=== PATIENT | female | born 1950 | race Caucasian/White ===

== ENCOUNTER → 2019-09-02 09:46 | Outpatient (CLI) | payer OTHER, SELFPAY ==
--- NOTE | 2019-09-02 | IMM_PTH ---
PATIENT: SUMIT BOLTON LOC: [facility] U#:[id number] AGE/SX: 75/F ROOM: RE09/02/[address]: Dr. Yuri Harman MD : 1950 BED: DIS: SPEC #: [id number] RECD: 09/06/19 10:18 STATUS: VICENTE RENikolai #: [id number] SINA: 09/02/19 00:[address]: Yuri Harman DEPT: IMMUNOHISTOCHEMISTRY RECD BY: Jackie Kessler ENTERED: 09/06/19 10:20 SP TYPE: IMMUNO OTHR DR: Dr. Yuri Huerta MD Tissues: Right breast, NOS Procedures: CALPONIN-1 (add) CK8 (add) E-CAD (add) HER2 MONICA (add) CA (add) P40 (add) ER (initial) PHYSICIAN & INSTITUTION [place] [id number] SPECIMEN INFORMATION: Tissue Source: Right breast Clinical Info: Abnormal right breast ultrasound Specimen Number: [id number] CPT code: 78343, 07938 x3, 39479 x3 METHODOLOGY: Deparaffinized sections of prefer/formalin-fixed tissue or PAP/DQ stained slides are incubated with monoclonal/polyclonal antibodies/oligonucleotide probes. Localization is made via biotin free immunoperoxidase method. Appropriate controls are performed and reacted as expected. Results on target cell population are indicated in the following table: RESULTS: ANTIBODY / CLONE RESULT E-Cad (ECH-6) positive CK8 ([id number]) positive Calponin-1 (QD663H) negative P40 (BC28) negative MORPHOMETRIC ANALYSIS ER (clone 6F11) >95%, strong intensity CA (clone 16/1E2) >95%, strong intensity Her-2Neu (clone CB11) negative (0) The prognostic test for HER2 is performed on formalin-fixed paraffin embedded tissue. A 3+ (positive) staining pattern is defined as intense, homogeneous, complete, circumferential membranous staining in >10% of contiguous tumor cells. A similar weak (2+) staining pattern is interpreted as equivocal. SOLEDAD follow-up testing is recommended for all equivocal cases. Positivity/negativity for ER/CA is reported if > or < 1% of the tumor cells are immuno- reactive, respectively. The ASCO/CAP criteria is used for scoring. Reference: Journal of Clinical Oncology, 2013; 31:7096-7543 & 2010; 16:6841-0237. Duration of fixation: 58 Hrs; Sample Adequate: Yes. These assays have not been validated on decalcified tissues. Results should be interpreted with caution given the likelihood of false negativity on decalcified specimens. These tests were developed and their performance characteristics determined by [facility]. They may not have been cleared or approved by the U.S. Food and Drug Administration. The FDA has determined that such clearance or approval is not necessary. The above immunohistochemical/dualISH markers are ordered and reviewed by the Pathologist. 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 SJ:minnie 09/07/19 Case has been reviewed in consultation with Dr. Sandhu who concurs with the above diagnosis. IDC:AM
[2019-09-02 09:06] VITALS: BMI 33.2
--- NOTE | 2019-09-02 09:10 | BRBX_PTH ---
PATIENT: SUMIT BOLTON LOC: [facility] U#:[id number] AGE/SX: 75/F ROOM: RE09/02/[address]: Dr. Yuri Harman MD : 1950 BED: DIS: SPEC #: [id number] RECD: 09/02/19 16:28 STATUS: VICENTE YESSENIA #: [id number] SINA: 09/02/19 09:[address]: Yuri Harman DEPT: SURGICAL PATHOLOGY RECD BY: Jonatan Beck ENTERED: 09/03/19 11:10 SP TYPE: BREAST BX OTHR DR: Dr. 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 See comment. DAE:minnie 09/06/19 COMMENT Immunohistochemistry ([id number]) supports the above diagnosis. ER/NJ/Lan8fum studies are being performed on sections of tumor and the results from this study will be reported separately ([id number]). Case has been reviewed in consultation with Dr. Sandhu who concurs with the above diagnosis. IDC:AM MICROSCOPIC DESCRIPTION Slides are reviewed. GROSS DESCRIPTION Received in fixative is one container labeled with the patient's name and designated right breast biopsy. The specimen consists of multiple fragments of olmedo-yellow fibroadipose tissue that in aggregate measure 1 x 0.3 x 0.1 cm. The entire specimen is submitted in one cassette. / DAE:minnie 09/03/19 TC:0 CPT: 68184
--- NOTE | 2019-09-02 09:51 | BI_ITS ---
MAMMOGRAPHY - UNILATERAL DIAGNOSTIC: RIGHT BREAST REASON FOR EXAM: Female, 69 years old. Assessment of the clip placement device following ultrasound-guided biopsy. PERTINENT HISTORY: Nodular density in the upper deep lateral aspect of the right breast. TECHNIQUE: Digital unilateral breast dunia (3D mammographic acquisition) in the CC and MLO projections. 2-D mediolateral oblique (MLO) and craniocaudad (CC) views of both breasts were obtained. CAD: Full Field Digital Mammography with Computer Added Detection was performed. COMPARISON: None. FINDINGS: A tissue clip marker is seen within a 7.6 mm x 5.1 mm nodular density in the deep axillary aspect of the breast. BI/DIAG MAMM W/CAD, UNILAT IMPRESSION: Tissue clip marker is seen within a nodule in the deep axillary portion of the right breast. ASSESSMENT CATEGORY: BIRADS Category 2: Benign. A letter regarding these results will be sent to the patient by the facility within 30 days. Approximately 10% of breast cancers are not detected by mammography. A normal mammogram should not delay biopsy of a clinically suspicious abnormality. Electronically Signed: Stoney Castañeda, at 11:01 EST , Service support ,
== END ==
PROVIDERS: Family Provider Family Medicine; PCP Family Medicine; Referring Provider Surgery; Visit Provider Surgery
DX: R92.8 Other abnormal and inconclusive findings on diagnostic imaging of breast (principal)
CPT/HCPCS: 77065; 88305; 88341; 88342

== ENCOUNTER → 2019-09-10 08:57 | Outpatient (CLI) | payer OTHER, SELFPAY ==
[2019-09-07 15:22] VITALS: BMI 33.2
[2019-09-08 16:42] VITALS: BMI 33.2
--- NOTE | 2019-09-10 08:59 | BI_ITS ---
MAMMOGRAPHY - UNILATERAL DIAGNOSTIC: LEFT BREAST REASON FOR EXAM: Female, 69 years old. History of right breast papilloma. PERTINENT HISTORY: Grandmother with breast cancer. Prior right stereotactic breast biopsy. TECHNIQUE: Digital unilateral breast dunia (3D mammographic acquisition) in the CC and MLO projections. 2-D mediolateral oblique (MLO) and craniocaudad (CC) views of both breasts were obtained. CAD: Full Field Digital Mammography with Computer Added Detection was performed. COMPARISON: Comparison is made with prior outside examination dated February 05, 2019. FINDINGS: Breast Composition: There are scattered areas of fibroglandular density. There are no dominant masses or suspicious calcifications. No other significant abnormalities are identified. There has been no significant change since the prior study. BI/DIAG MAMM W/CAD, UNILAT IMPRESSION: Stable unilateral diagnostic mammogram. One year follow-up mammogram recommended. (A) ASSESSMENT CATEGORY: BIRADS Category 2: Benign. A letter regarding these results will be sent to the patient by the facility within 30 days. Approximately 10% of breast cancers are not detected by mammography. A normal mammogram should not delay biopsy of a clinically suspicious abnormality. Electronically Signed: Stoney Castañeda, at 12:34 EST , Service support ,
== END ==
PROVIDERS: Family Provider Family Medicine; PCP Family Medicine; Referring Provider Surgery; Visit Provider Surgery
DX: R92.8 Other abnormal and inconclusive findings on diagnostic imaging of breast (principal)
CPT/HCPCS: 77061; 77065; G0279

== ENCOUNTER → 2019-09-13 15:36 | Outpatient (CLI) | payer OTHER, SELFPAY ==
[2019-09-13 14:26] VITALS: BMI 35.5
--- NOTE | 2019-09-13 15:40 | RAD_ITS ---
STUDY: X-RAY CHEST REASON FOR EXAM: Female, 69 years old. Preop breast cancer TECHNIQUE: Frontal and lateral views of the chest. COMPARISON: None. FINDINGS: The lungs are clear and expanded. There is no demonstrated pleural abnormality. Normal size heart. Normal mediastinum and philip. Normal visualized pulmonary arteries. Normal visualized aortic arch and descending thoracic aorta. Normal visualized thoracic spine. Normal visualized ribs, clavicles, and shoulders. There is no demonstrated abnormality of the visualized soft tissue structures of the upper abdomen. RAD/Chest PA and Lateral IMPRESSION: Normal x-ray examination of the chest. Electronically Signed: Jayro Ferro MD at 0:01 EST , Service support ,
== END ==
PROVIDERS: Family Provider Family Medicine; PCP Family Medicine; Referring Provider Internal Medicine Medical Oncology; Visit Provider Internal Medicine Medical Oncology
DX: C50.411 Malignant neoplasm of upper-outer quadrant of right female breast (principal)
CPT/HCPCS: 71046

== ENCOUNTER 2019-09-16 11:19 | Day surgery (SDC) | payer OTHER, SELFPAY ==
--- NOTE | 2019-09-08 04:42 | HP_ITS ---
Intake Vital Signs 09/07/19 Body Mass Index (BMI) 33.2 Intake Visit Reasons: discuss breast path--@1445 Allergies levofloxacin [From Levaquin] Allergy (Unknown, Verified 09/02/19 09:05) Unknown Sulfa (Sulfonamide Antibiotics) Allergy (Unknown, Verified 09/02/19 09:05) Unknown [facility] Medical History Acid reflux (Acute) Heart murmur (Acute) Thyroid disease (Acute) Abnormal mammogram of right breast (Acute) Abnormal ultrasound of breast (Acute) Fatigue (Acute) Surgical History Hx of right breast biopsy (Acute) Hx of ovarian cystectomy (Acute) Hx of tubal ligation (Acute) Hx of tonsillectomy (Acute) Family History Mother Arthritis Heart disease Hypertension High cholesterol Skin cancer Son Diabetes Social History (Updated 09/08/19 @ 16:42 by Yuri Harman MD) Smoking Status: Never smoker second hand exposure: No alcohol intake: current alcohol intake frequency: holidays/special occasions only substance use type: does not use caffeine: Yes what type of physical activity do you participate in: none frequency: does not exercise seatbelt use: always HPI HPI HPI: SUMIT BOLTON is a 69 F who presents to the office today for HPI HPI Surgical H&P: Yes HPI: SUMIT BOLTON is a 69 F who presents to the office today for who returns today to discuss pathology from a ultrasound-guided needle core biopsy high in the upper outer quadrant right breast that I performed for her on September 02, 2019. This was because of a slowly enlarging density in that location. She had had a previous stereotactic biopsy seemingly in a similar area although a marking clip was not placed at the time of that sampling. 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 Progesterone receptor greater than 95%. HER-2/prashant was negative. She did obtain postprocedural mammogram demonstrating the marking clip that I placed to be in the density on mammogram according the 2 areas. It is of note that she has not had a left unilateral mammogram since January 2019 since follow-up and evaluation of this right sided lesion was initiated. The patient was referred to me because a six- month follow-up mammogram on the right demonstrated a change. 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 Is patient in pain?: No (Right breast tenderness) Allergies levofloxacin [From Levaquin] Allergy (Unknown, Verified 08/24/19 13:56) Unknown Sulfa (Sulfonamide Antibiotics) Allergy (Unknown, Verified 08/24/19 13:55) Unknown Medications calcium carbonate 500 mg calcium (1,250 mg) tablet 500 mg PO DAILY 08/24/19 [History Confirmed 08/24/19] fluticasone propionate 50 mcg/actuation nasal spray,suspension 1 spray INTRANASAL DAILY 08/24/19 [History Confirmed 08/24/19] levothyroxine 125 mcg tablet 62.5 mcg PO DAILY #45 tab 08/24/19 [History Confirmed 08/24/19] PFSH Medical History (Updated 08/24/19 @ 13:52 by Marquita Baxter) Acid reflux (Acute) Heart murmur (Acute) Thyroid disease (Acute) Abnormal mammogram of right breast (Acute) Abnormal ultrasound of breast (Acute) Fatigue (Acute) Surgical History (Updated 08/24/19 @ 13:52 by Marquita Baxter) Hx of right breast biopsy (Acute) Hx of ovarian cystectomy (Acute) Hx of tubal ligation (Acute) Hx of tonsillectomy (Acute) Family History (Updated 08/24/19 @ 13:53 by Marquita Baxter) Mother Arthritis Heart disease Hypertension High cholesterol Skin cancer Son Diabetes Social History (Updated 08/24/19 @ 15:44 by Yuri Harman MD) Smoking Status: Never smoker second hand exposure: No alcohol intake: current alcohol intake frequency: holidays/special occasions only substance use type: does not use caffeine: Yes what type of physical activity do you participate in: none frequency: does not exercise seatbelt use: always HPI HPI HPI: SUMIT BOLTON, is a 69 F who presents to the office today for surgical consultation regarding abnormal right breast ultrasound. 69-year-old female. G3, . Menarche at his age 14. First child was born when she was 25. She did breast-feed. She has had a very remote needle biopsy of the breast not sure which breast. That was benign. About 2 years ago she had a stereotactic needle core right breast biopsy. She does not recall whether that was for a density or calcifications but she states that the pathology simply showed benign calcifications. She is not on any estrogen replacement therapy. A maternal grandmother had breast cancer but that is when she was in her 80s. On February 05, 2019 at [facility] she had bilateral digital screening mammography. The left breast was unremarkable. The right breast showed an asymmetry only on the oblique view superior posterior breast posterior depth 6 x 6 mm. Mild interval growth was suggested. So on February 09, 2019 right breast ultrasound was done. Solid appearing mass like benign morphology 10 o'clock position upper outer right breast 4 x 5 x 4 mm. Follow-up ultrasound recommended. On August 13, 2019 at [facility] follow-up right breast ultrasound was obtained. A solid suspicious appearing lesion heterogenous hypoechoic echotexture mid breath depth 10 o'clock position right breast 7 x 9 x 7 mm previously having measured 4 x 5 x 4 mm. BI-RADS Category 4. On today's visit we do not have pathology from her stereotactic breast biopsy of 2 years ago and we do not have a disc of images of her current set of ultrasounds. The patient however states that her previous stereotactic biopsy was in the upper outer quadrant of the right breast. It is not clear whether we are discussing the same lesion HPI HPI HPI: SUMIT BOLTON, is a 69 F who presents to the office today for ROS General General: Yes fatigue; no weight change, appetite, colon cancer, breast cancer or weakness HEENT HEENT: No difficulty swallowing, eye injury, eye surgery, swollen glands or hoarseness Endo Endocrine: Yes thyroid disease; no diabetes mellitus, thyroid cancer, Hair loss, heat intolerance or cold intolerance Skin Skin: No rash or changing moles Breast Breast: Yes right breast lump, abnormal mammogram and abnormal US; no left breast lump, nipple discharge, breast pain or breast enlargement Musc Musculoskeletal: No back problems, arthritis, rheumatoid arthritis, gout or joint pain Cardio Cardiovascular: Yes murmur; no pacemaker, heart disease, atrial fibrillation, high blood pressure, heart attack, heart stent, palpitations, shortness of breat with exertion or chest pain Psych Psychiatric: No depression, anxiety or hearing voices Resp Respiratory: No shortness of breath, No sleep apnea, No cough, No COPD, No asthma, No emphysema, No wheezing Gastro Gastrointestinal: No abdominal pain, No nausea or vomiting, No diarrhea, No constipation, No blood in stool, Yes acid reflux, No hemorrhoids, No ulcers, No gallbladder problem, No black,tarry stools Orion Hematologic: No blood thinners, No blood disorders, No bleeding, No anemia, No blood clots Neuro Neurologic: No system reviewed and no additional complaints, except as docu, No as per HPI, No abnormal walking, No abnormal hearing, No abnormal movements, No abnormal speech, No behavioral changes, No burning sensations, No confusion, No seizure-like activity, No unsteadiness, No dizziness, No localized weakness, No frequent falls, No headache(s), No lack of coordination, No loss of vision, No memory loss, No numbness, No other visual disturbances, No radiating pain, No restless legs, No sensory deficit, No fainting, No tingling, No tremor(s), No weakness, No other Exam Chest Breast Palpation: No nipple discharge Other: Right breast: No focal mass. No nipple discharge. No axillary or clavicular adenopathy Ultrasound of the right breast demonstrates a 8 mm diameter lesion 10 o'clock position +5 cm. It appears to correlate what has been descriptively identified and it appears on my exam to have a marking clip in position. Left breast: Mild diffuse fibrous change. No focal concerning mass. No nipple discharge. No distortion. The patient has mild tenderness in the lateral left breast. No axillary or clavicular adenopathy Cardio Heart Sounds: murmur Assessment & Plan Problems 1. Abnormal ultrasound of breast R92.8 Plan 69-year-old female who has a recent ultrasound performed at [facility] suggesting enlargement of a density right breast 10 o'clock position. The patient 2 years ago had a stereotactic biopsy done she thinks in a similar location. There are no palpable lesions today. On my brief inspection with ultrasound I believe that identify a 8 mm diameter lesion right breast 10 o'clock position +5 cm that has a marking clip in place and would appear to correlate with the description offered. I recommended the patient that we obtain pathology results from her stereotactic needle core biopsy as well as hopefully the operative note. I recommend that we obtain a disc of images from her most recent ultrasound performed at [facility] as well as hopefully images of her January 2019 mammograms. Once having received this information we will then recommend to the patient whether she needs to have an additional ultrasound-guided biopsy upper outer quadrant right breast lesion or whether there is evidence that this area has already been biopsied. I appreciate the opportunity of assisting with her surgical care CC: Dr. Yuri ORTEGA General General: Yes fatigue; no weight change, appetite, colon cancer, breast cancer or weakness HEENT HEENT: No difficulty swallowing, eye injury, eye surgery, swollen glands or hoarseness Endo Endocrine: Yes thyroid disease; no diabetes mellitus, thyroid cancer, Hair loss, heat intolerance or cold intolerance Skin Skin: No rash or changing moles Breast Breast: Yes right breast lump, abnormal mammogram and abnormal US; no left breast lump, nipple discharge, breast pain or breast enlargement Musc Musculoskeletal: No back problems, arthritis, rheumatoid arthritis, gout or joint pain Cardio Cardiovascular: Yes murmur; no pacemaker, heart disease, atrial fibrillation, high blood pressure, heart attack, heart stent, palpitations, shortness of breat with exertion or chest pain Psych Psychiatric: No depression, anxiety or hearing voices Resp Respiratory: No shortness of breath, No sleep apnea, No cough, No COPD, No asthma, No emphysema, No wheezing Gastro Gastrointestinal: No abdominal pain, No nausea or vomiting, No diarrhea, No constipation, No blood in stool, Yes acid reflux, No hemorrhoids, No ulcers, No gallbladder problem, No black,tarry stools Orion Hematologic: No blood thinners, No blood disorders, No bleeding, No anemia, No blood clots Neuro Neurologic: No weakness Exam Chest Breast Palpation: No nipple discharge Cardio Heart Sounds: murmur Assessment & Plan Problems 1. 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 Today was a 20- minute consultative appointment. The patient's accompanied her. I am proposing for her a ultrasound-guided wire localization upper outer quadrant right breast lumpectomy. I did take several core samples. Pathology appears to be consistent with a in situ lesion. We did discuss the potential technique risks benefits of a sentinel lymph node biopsy of the axilla. I did caution the patient that this is not a risk free surgical addition. She is aware that she likely will require post surgery radiation treatment. She has had an opportunity to ask and have questions answered. She states that she has already done online research and the current recommendations correlate with her findings. I do recommend that we obtain hematology oncology consultation preintervention. She concurs and I will make appropriate referral. Both the patient and her have had an opportunity to ask and have questions answered. We will schedule and proceed at her discretion for next week. CC: Dr. Yuri Harman M.D., F.A.C.S. 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 After discussion with him she has elected to proceed with a sentinel lymph node biopsy of right axillary nodes utilizing nuclear medicine and blue dye. She is aware of the technique, benefits, risks, alternatives. She has had an opportunity to ask and have questions answered. The sentinel lymph node biopsy will be added to her procedure. Yuri Harman M.D., F.A.C.S.
[2019-09-13 14:26] VITALS: BMI 35.5
--- NOTE | 2019-09-16 | BRBX_PTH ---
PATIENT: SUMIT BOLTON [place] [facility] [id number] AGE/SX: 69/F ROOM: RE09/16/[address]: Dr. Yuri Harman MD : 1950 BED: DIS: 09/16/2019 SPEC #: [id number] RECD: 09/16/19 16:19 STATUS: VICENTE YESSENIA #: [id number] SINA: 09/16/19 00:[address]: Yuri Harman DEPT: SURGICAL PATHOLOGY RECD BY: Jackie Kessler ENTERED: 09/17/19 07:30 SP TYPE: BREAST BX OTHR DR: Dr. 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 Right breast mass, B. Right sentinel lymph node FROZEN SECTION DIAGNOSIS A. Right breast, lumpectomy: Mass is located 0.8cm from closest superior margin. B. Right sentinel lymph node tissue: Three out of three lymph nodes, negative for metastatic carcinoma. SJ:minnie 09/16/19 MICROSCOPIC DIAGNOSIS A. Right breast mass, lumpectomy: Solid papillary ductal carcinoma in situ. See Cancer Check List below. B. Right sentinel lymph nodes, biopsy: 3 out of 3 lymph nodes negative for carcinoma. AM:rashid 09/22/19 COMMENT DUCTAL CARCINOMA IN SITU BREAST CANCER SUMMARY Procedure: Lumpectomy Specimen: Type: Partial breast Laterality: Right breast Size (Extent of DCIS): Estimated size (extent): 0.8 x 0.7 x 0.6 cm Number of blocks: 2 of 9 blocks Architectural pattern: Papillary Nuclear grade: 1-2 Necrosis: Not present Margin (s) Involved By In Situ Carcinoma: All margins are negative Distance from closest margin: 0.8 mm from superior margin Regional Lymph Nodes: Total number of lymph nodes examined: 3 Total number of sentinel lymph nodes examined: 3 Number of lymph nodes involved by carcinoma: 0 Extranodal extension: N/A No evidence of macrometastases, micrometastases or isolated tumor cells. See specimen B Microcalcifications: Present in nonneoplastic tissue. Additional Pathologic Findings: Mild fibrocystic change Ancillary Studies: Previously done on same tumor ([id number]) ER - positive (greater than 95%, strong intensity) NC - positive (greater than 95%, strong intensity) Her2 - Negative (0) Clinical History: Mass of right breast Pathologic Stage: Tis(DCIS), N0, MX Case has been reviewed in consultation with Dr. Alvares who concurs with the above diagnosis. IDC:SJ MICROSCOPIC DESCRIPTION Slides are reviewed. GROSS DESCRIPTION A. Received fresh for frozen section consultation labeled with the patient's name is a specimen designated right breast mass. The specimen consists of a lumpectomy specimen measuring 6 x 4 x 1.5 cm and containing a wire. The surgeon is present and has oriented the specimen. Also present in the specimen container are 3 irregular fragments of yellow-olmedo fibrofatty tissue measuring 1.8, 3 and 3.3 cm in greatest dimension respectively. Each has an average thickness of 0.8 cm. These are designated the true superior margins. The lumpectomy fragment is inked as follows: False superior margin - blue, inferior margin - green, anterior margin - yellow, posterior margin - black, medial margin - red, lateral margin - orange. Serial sections reveal a yellow - white chalky nodule measuring 0.8 x 0.7 x 0.6 cm. The nodule closely approximates the false superior margin. The gross is reviewed with the surgeon in person. The remainder of the breast parenchyma is olmedo-yellow and free of mass lesions. The three other fragments designated true margins reveal yellow fatty tissue. The true superior margins on these three fragments are inked black. Electrical Inspector sections are submitted in 9 cassettes as follows: 1 & 2 - perpendicular margins, 3 - true superior margin, 4 & 5 - tumor, totally submitted, 6-9 - sales service representative sections of breast parenchyma adjacent to and away from mass. The gross is reviewed with the surgeon in person. Sections are submitted after additional fixation. B. Received fresh for frozen section consultation labeled with the patient's name is a specimen designated right sentinel lymph nodes. The specimen consists of two fragments of olmedo-yellow fibrofatty tissue ranging in size from 2 to 3 cm. Dissection reveals 3 nodules ranging in size from 1.5 to 2.5 cm. The specimen is submitted entirety for frozen section consultation in 3 cassettes as follows: 1 - one nodule, 2 - one nodule bisected, 3 - one nodule trisected. /AM:sp 09/17/19 TC: 0 CPT: 17433 x2, 13760 x1, 04824 x1, 50004 x2
--- NOTE | 2019-09-16 | IMM_PTH ---
PATIENT: SUMIT BOLTON LOC: [facility] – [place] U#:[id number] AGE/SX: 69/F ROOM: RE09/16/[address]: Dr. Yuri Harman MD : 1950 BED: DIS: 09/16/2019 SPEC #: [id number] RECD: 09/21/19 15:02 STATUS: VICENTE RENikolai #: [id number] SINA: 09/16/19 00:[address]: Yuri Harman DEPT: IMMUNOHISTOCHEMISTRY RECD BY: Sabra Ventura ENTERED: 09/21/19 15:04 SP TYPE: IMMUNO OTHR DR: Dr. Yuri Huerta MD Tissues: Lymph node, NOS Procedures: CK8 (add) Pankeratin (initial) Pankeratin (add) PHYSICIAN & INSTITUTION [place] [id number] SPECIMEN INFORMATION: Tissue Source: B. 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 Localization is made via biotin free immunoperoxidase method. Appropriate controls are performed and reacted as expected. Results on target cell population are indicated in the following table: RESULTS: ANTIBODY / CLONE RESULT Block B1 AE1-3 (AE1/AE3/PCK26) negative CK8 ([id number]) negative Block B2 AE1-3 (AE1/AE3/PCK26) negative CK8 ([id number]) negative Block B3 AE1-3 (AE1/AE3/PCK26) negative CK8 (14aiwwR42) negative These tests were developed and their performance characteristics determined by [facility]. They may not have been cleared or approved by the U.S. Food and Drug Administration. The FDA has determined that such clearance or approval is not necessary. The above immunohistochemical/dualISH markers are ordered and reviewed by the Pathologist. INTERPRETATION: B. Right axillary sentinel lymph nodes, biopsy: Three out of 3 lymph nodes negative for carcinoma AM:anuj 09/22/19
--- NOTE | 2019-09-16 | BRBX_PTH ---
PATIENT: SUMIT BOLTON LOC: [facility] – [place] U#:[id number] AGE/SX: 69/F ROOM: RE09/16/[address]: Dr. Yuri Harman MD : 1950 BED: DIS: 09/16/2019 SPEC #: [id number] RECD: 09/16/19 16:19 STATUS: VICENTE YESSENIA #: [id number] SINA: 09/16/19 00:[address]: Yuri Harman DEPT: SURGICAL PATHOLOGY RECD BY: Jackie Kessler ENTERED: 09/17/19 07:30 SP TYPE: BREAST BX OTHR DR: Dr. Yuri Huerta MD Tissues: A - Right breast, NOS B - Axillary lymph node, NOS Procedures: Frozen Section (charge) Frozen Section Add'l (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 Right breast mass, B. Right sentinel lymph node FROZEN SECTION DIAGNOSIS A. Right breast, lumpectomy: Mass is located 0.8 cm from closest superior margin. B. Right sentinel lymph node tissue: Three out of three lymph nodes, negative for metastatic carcinoma. SJ:minnie 09/16/19 MICROSCOPIC DIAGNOSIS A. Right breast mass, lumpectomy: Solid papillary ductal carcinoma in situ. See Cancer Check List below. B. Right sentinel lymph nodes, biopsy: 3 out of 3 lymph nodes negative for carcinoma. AM:rashid 09/22/19 AM:minnie 10/14/19 COMMENT DUCTAL CARCINOMA IN SITU BREAST CANCER SUMMARY Procedure: Lumpectomy Specimen: Type: Partial breast Laterality: Right breast Size (Extent of DCIS): Estimated size (extent): 0.8 x 0.7 x 0.6 cm Number of blocks: 2 of 9 blocks Architectural pattern: Papillary Nuclear grade: 1-2 Necrosis: Not present Margins: Uninvolved by DCIS Distance from closest margin: 0.8 cm from superior margin Regional Lymph Nodes: Total number of lymph nodes examined: 3 Total number of sentinel lymph nodes examined: 3 Number of lymph nodes involved by carcinoma: 0 Extranodal extension: N/A No evidence of macrometastases, micrometastases or isolated tumor cells. See specimen B Microcalcifications: Present in nonneoplastic tissue. Additional Pathologic Findings: Mild fibrocystic change Ancillary Studies: Previously done on same tumor ([id number]) ER - positive (greater than 95%, strong intensity) LA - positive (greater than 95%, strong intensity) Her2 - Negative (0) Clinical History: Mass of right breast Pathologic Stage: Tis(DCIS), N0, MX This case was reviewed and diagnosis discussed with Dr. Gamino on 10/14/19 at 11:00 a.m. Case has been reviewed in consultation with Dr. Alvares who concurs with the above diagnosis. IDC:SJ MICROSCOPIC DESCRIPTION Slides are reviewed. GROSS DESCRIPTION A. Received fresh for frozen section consultation labeled with the patient's name is a specimen designated right breast mass. The specimen consists of a lumpectomy specimen measuring 6 x 4 x 1.5 cm and containing a wire. The surgeon is present and has oriented the specimen. Also present in the specimen container are 3 irregular fragments of yellow-olmedo fibrofatty tissue measuring 1.8, 3 and 3.3 cm in greatest dimension respectively. Each has an average thickness of 0.8 cm. These are designated the true superior margins. The lumpectomy fragment is inked as follows: False superior margin - blue, inferior margin - green, anterior margin - yellow, posterior margin - black, medial margin - red, lateral margin - orange. Serial sections reveal a yellow - white chalky nodule measuring 0.8 x 0.7 x 0.6 cm. The nodule closely approximates the false superior margin. The gross is reviewed with the surgeon in person. The remainder of the breast parenchyma is olmedo-yellow and free of mass lesions. The three other fragments designated true margins reveal yellow fatty tissue. The true superior margins on these three fragments are inked black. Access Services Assistant sections are submitted in 9 cassettes as follows: 1 & 2 - perpendicular margins, 3 - true superior margin, 4 & 5 - tumor, totally submitted, 6-9 - printing sales representative sections of breast parenchyma adjacent to and away from mass. The gross is reviewed with the surgeon in person. Sections are submitted after additional fixation. B. Received fresh for frozen section consultation labeled with the patient's name is a specimen designated right sentinel lymph nodes. The specimen consists of two fragments of olmedo-yellow fibrofatty tissue ranging in size from 2 to 3 cm. Dissection reveals 3 nodules ranging in size from 1.5 to 2.5 cm. The specimen is submitted entirety for frozen section consultation in 3 cassettes as follows: 1 - one nodule, 2 - one nodule bisected, 3 - one nodule trisected. /AM:sp 09/17/19 TC: 0 CPT: 73618 x2, 69647 x1, 13329 x1, 30577 x2
--- NOTE | 2019-09-16 11:28 | EKG12_ITS ---
Test Reason : PREOP Blood Pressure : / mmHG Vent. Rate : 052 BPM Atrial Rate : 052 BPM P-R Int : 140 ms QRS Dur : 092 ms QT Int : 468 ms P-R-T Axes : 024 -15 025 degrees QTc Int : 435 ms Sinus bradycardia Otherwise normal ECG No previous ECGs available Confirmed by DELBERT COLEMAN, EDDA ([id number]), desk editor DAMIR CHI ([id number]) on 09/19/2019 10:35:53 AM Referred By: Yuri Harman Confirmed By:MENDEZ MANDUJANO MD
[2019-09-16 11:46] VITALS: BP 135/60; PULSE 56; RESP 15; TEMP 36.6; O2SAT 99; BMI 34.9
[2019-09-16 11:50] LABS: Hematocrit 42.7 % (37-47); Hemoglobin 13.6 g/dL (12.0-15.0); Mean Corp Hgb Conc 31.9 g/dL (32-36); Mean Corpuscular Hgb 29.2 pg (27.0-32.0); Mean Corpuscular Volume 91.6 fL (81-99); Mean Platelet Vol. 8.9 fl (6.2-12.0); Platelet Count 469 K/mm3 (150-450); RBC Distribution Width CV 12.7 % (11.6-14.6); RBC Distribution Width SD 41.9 fl (35.1-43.9); Red Blood Count 4.66 M/mm3 (4.2-5.4); White Blood Count 7.3 K/mm3 (4.4-11.0)
--- NOTE | 2019-09-16 12:00 | NM_ITS ---
PROCEDURE: NUCLEAR MEDICINE Injection [place] Node - RIGHT breast(s). REASON FOR EXAM: Female, 69 years old. Right breast cancer. TECHNIQUE: [place] node localization using radionuclide methods of the RIGHT breast(s) was performed following subcutaneous administration of 1.1 mCi of of sulfur colloid Tc-99m. FINDINGS: 1.1 mCi of Tc labeled sulfur colloid was injected subcutaneously in 4 equal aliquots at the 10:00 position of the right breast. NM/Lymph Node Injection Only IMPRESSION: 1.1 mCi of technetium labeled sulfur colloid injected subcutaneously in 4 equal aliquots at the 10:00 position of the right breast. Electronically Signed: Stoney Castañeda, at 13:50 EST , Service support ,
[2019-09-16 12:08] LABS: Anion Gap 4 (5-15); BUN 15 mg/dL (7-18); BUN/Creat Ratio 15.3 RATIO (10-20); Calcium,Total 9.4 mg/dL (8.5-10.1); Chloride 104 mmol/L (98-107); Creatinine, Serum 0.98 mg/dL (0.55-1.02); EST Glomerular Filtration Rate 60 mL/min (>60); Est Glom Filt Rate - Afr Amer 73 mL/min (>60); Estimated Creatinine Clearance 40.01 ml/min; Glucose 101 mg/dL (74-106); Potassium 4.3 mmol/L (3.5-5.1); Sodium Level 136 mmol/L (136-145)
[2019-09-16] MEDS: Lactated Ringers 1,000 ML 100 ML IV ×2 (12:55→17:10)
--- NOTE | 2019-09-16 14:10 | BI_ITS ---
SURGICAL BREAST SPECIMEN RADIOGRAPH CLINICAL: Document presence of tissue clip marker in biopsy specimen. FINDINGS: Specimen shows presence of tissue clip marker. Electronically Signed: Stoney Castañeda, at 8:02 EST , Service support , BI/Breast Biopsy Specimen
--- NOTE | 2019-09-16 15:29 | DCINST_ITS ---
Discharge Diet: No Restrictions Discharge Activity: May Not Drive - for 2-3 days or while taking narcotic pain meds. May shower in (days): 1 Lifting Restrictions: 10 pounds for 1 week. Call your doctor if your incision/area has: Continuous Slow Oozing, Sudden In creased Bleeding Call your doctor if you observe: Fever of 101 or Higher Suture Line Care: Avoid Pulling/Pushing, Avoid Pinching/Bending Remove Dressing in (days):: 1 - Remove bulky dressing tomorrow. May leave any opsite dressing for 3-4 days. Keep dressing in place until your follow-up appointment. Additional Dressing/Incision Instructions:: Remove bulky dressing tomorrow. May leave any opsite dressing for 3-4 days. Keep dressing in place until your follow-up appointment. Allergies/Adverse Reactions: Allergies levofloxacin [From Levaquin] Allergy (Unknown, Verified 09/16/19 11:45) Unknown Sulfa (Sulfonamide Antibiotics) Allergy (Unknown, Verified 09/16/19 11:45) Unknown Medications to take at Discharge calcium carbonate 500 mg calcium (1,250 mg) tablet 500 mg PO DAILY 08/24/19 fluticasone propionate 50 mcg/actuation nasal spray,suspension 1 spray INTRANASAL DAILY 08/24/19 levothyroxine 125 mcg tablet 62.5 mcg PO DAILY #45 tab 08/24/19 Famotidine [Acid Controller] 10 mg PO QHS 09/13/19 Loratadine [Claritin] 10 mg PO DAILY 09/13/19 Primary Care Physician: Yuri Huerta MD [Primary Care Provider] - Please Follow Up With: Yuri Harman MD - [phone] When: Office appointment in approximately 1 week please
[2019-09-16] MEDS: Isosulfan Blue 1% 5 ML Vial (16:00)
--- NOTE | 2019-09-16 16:39 | PCM.OPRPT ---
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 Right axillary nuclear tracer and blue dye sentinel lymph node biopsy Description of Surgical Findings:: Timeout informed consent was obtained. 69-year-old female taken the operating placed supine table underwent general anesthesia the left arm was carefully wrapped with soft roll and placed to right angles of the table. The right breast was prepped with alcohol and 2 cc of isosulfan blue was injected retroareolar area. Massage was performed for 3 minutes. The patient artery received nuclear tracer. The right breast and axilla were sterilely prepped and draped. I performed ultrasound and identify the area of concern. Under ultrasound guidance I placed a Kopan's needle dislodge the wire. I then made an oblique incision in the right upper outer quadrant of the breast axillary area. Because of the very close proximity to the axilla I decided to utilize the one incision for both the mass and the lymph node dissection. Sharp dissection was carried down and he became apparent that the nodule was very close and so I did a complete excision of that area using electrocautery. I thought that the superior margin was closest so I excised more tissue in that area. Palpation and visualization failed to reveal any residual disease. I then traced lymphatic blue dye to what appeared to be 2 enlarged lymph nodes. I dissected those free with electrocautery hemoclips were used were indicated. They were resected and sent to pathology. The axilla appeared to be dry and intact. I anesthetized the yayo-incisional area with 0.5% Marcaine and a total of 30 cc was used. The wound was closed with a deep layer of interrupted 3-0 Vicryl and then a running septic or 4-0 Monocryl. Steri-Strips Telfa OpSite pressure dressing was applied. Sponge and instrument and needle counts were reported to the surgery correct. Specimen right breast mass with additional resected tissue representing the superior margin. Drains none. Blood loss minimal. Yuri Harman M.D., F.A.C.S. Type of Anesthesia:: General Anesthesiologist: Henrry Ahn
[2019-09-16] MEDS: Bupivacaine Mpf 0.5% 30 ML VIAL (16:40)
[2019-09-16 16:56] VITALS: BP 114/75; BP 135/60; PULSE 76; RESP 16; TEMP 36.8; O2SAT 94
[2019-09-16 17:00] VITALS: BP 123/67; BP 135/60; PULSE 77; RESP 16; O2SAT 93
[2019-09-16 17:15] VITALS: BP 128/65; BP 135/60; PULSE 69; RESP 16; O2SAT 97
[2019-09-16 17:25] VITALS: BP 113/75; BP 135/60; PULSE 71; RESP 16; TEMP 37.1; O2SAT 97
[2019-09-16 18:08] VITALS: BP 135/60
== END 2019-09-16 18:24 | disposition home or self-care (01) ==
LOC: SDC 11:19 → AC 11:23
PROVIDERS: Family Provider Family Medicine; PCP Family Medicine; Referring Provider Surgery; Visit Provider Surgery
PROC: (CPT 19301; principal; 2019-09-16 13:55)
DX: D05.81 Other specified type of carcinoma in situ of right breast (principal); E06.9 Thyroiditis, unspecified; R01.1 Cardiac murmur, unspecified; K21.9 Gastro-esophageal reflux disease without esophagitis; Z86.2 Personal history of diseases of the blood and blood-forming organs and certain disorders involving the immune mechanism; Z78.0 Asymptomatic menopausal state; Z79.899 Other long term (current) drug therapy
CPT/HCPCS: 19301; 38525; 36415; 38792; 76098; 80048; 85027; 88305; 88307; 88331; 88332; 88341; 88342; 93005; A9541; J7120; J2405; Q9968

== ENCOUNTER → 2019-11-23 15:31 | Outpatient (CLI) | payer OTHER, SELFPAY ==
[2019-10-05 10:59] VITALS: BMI 35.7
[2019-10-14 13:50] VITALS: BMI 36.2
--- NOTE | 2019-11-23 15:35 | BD_ITS ---
STUDY: DUAL ENERGY X-RAY ABSORPTIOMETRY / DXA REASON FOR EXAM: Female, 69 years old. 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 COMPARISON: None. FINDINGS: Lumbar Spine (L1-L4): g/cm2 (0.841) / T-score (-3.0) / Z-score (-1.4) Findings are suggestive of osteoporosis with a high fracture risk. Left Femur Total: g/cm2 (0.812) / T-score (-1.6) / Z-score (-0.2) Left Femoral Neck: g/cm2 (0.742) / T-score (-2.1) / Z-score (-0.6) Right Femur Total: g/cm2 (0.768) / T-score (-1.9) / Z-score (-0.6) Right Femoral Neck: g/cm2 (0.780) / T-score (-1.9) / Z-score (-0.3) BD/Dexa Bone Density Study IMPRESSION: The patient is considered osteoporotic as outlined below according to World [place] Organization (WHO) criteria with a high fracture risk. Reference Information: The T-score is the number of standard deviations above or below the standard which is normal for young adults at their peak bone mineral density. The World Health Organization (WHO) interprets the T-scores as follows: Above -1 Normal bone density Between -1 and -2.5 Osteopenia Equal to / or below -2.5 Osteoporosis As a practical clinical guideline, osteopenia may be graded as follows: Mild -1 through -1.5 Moderate -1.6 through -2.0 Severe -2.1 through -2.4 The Z-score is the number of standard deviations above or below age-matched controls. A Z-score of less than -1.5 would be considered abnormal. References: 1. NIH Osteoporosis and Related Bone Diseases http://www.osteo.org 2. International Society for Clinical Densitometry http://www.iscd.org 3. National Osteoporosis Foundation http://www.nof.org Electronically Signed: Stoney Castañeda, at 14:22 EST , Service support ,
== END ==
PROVIDERS: PCP Family Medicine; Referring Provider Internal Medicine Medical Oncology; Visit Provider Internal Medicine Medical Oncology
DX: Z13.820 Encounter for screening for osteoporosis (principal)
CPT/HCPCS: 77080

== ENCOUNTER → 2020-09-12 13:20 | Outpatient (CLI) | payer OTHER, SELFPAY ==
[2019-10-14 13:50] VITALS: BMI 36.2
[2020-01-26 15:42] VITALS: BMI 36.9
--- NOTE | 2020-09-12 13:24 | BI_ITS ---
MAMMOGRAPHY - BILATERAL DIAGNOSTIC REASON FOR EXAM: Female, 70 years old. Prior right lumpectomy. Radiation treatment. History of prior right stereotactic breast biopsy. PERTINENT HISTORY: Grandmother with breast cancer. TECHNIQUE: Digital bilateral breast dunia (3D mammographic acquisition) in the CC and MLO projections. 2-D mediolateral oblique (MLO) and craniocaudad (CC) views of both breasts were obtained. CAD: Full Field Digital Mammography with Computer Added Detection was performed. COMPARISON: Comparison is made with prior examination dated 09/02/2019. FINDINGS: Breast Composition: The breasts are heterogeneously dense, which may obscure small masses. There are no dominant masses or suspicious calcifications. Surgical clips are seen in the deep axillary region of the right breast with the post operative changes secondary to the lumpectomy. There is skin thickening involving the right breast. No other significant abnormalities are identified. BI/DIAG MAMM W/CAD, BILAT IMPRESSION: Status post right lumpectomy with resultant postoperative changes as well as skin thickening of the right breast. One year follow-up recommended. (A) ASSESSMENT CATEGORY: BIRADS Category 2: Benign. A letter regarding these results will be sent to the patient by the facility within 30 days. Approximately 10% of breast cancers are not detected by mammography. A normal mammogram should not delay biopsy of a clinically suspicious abnormality. Electronically Signed: Stoney Castañeda, at 14:38 EST , Service support ,
== END ==
PROVIDERS: PCP Family Medicine; Referring Provider Student in an Organized Health Care Education/Training Program; Visit Provider Student in an Organized Health Care Education/Training Program
DX: D05.11 Intraductal carcinoma in situ of right breast (principal); R92.8 Other abnormal and inconclusive findings on diagnostic imaging of breast
CPT/HCPCS: 77062; 77066; G0279

== ENCOUNTER → 2020-10-11 12:58 | Outpatient (CLI) | payer OTHER, SELFPAY ==
[2019-10-14 13:50] VITALS: BMI 36.2
[2020-09-22 10:19] VITALS: BMI 36.3
--- NOTE | 2020-10-11 13:04 | ECHODONC_ITS ---
Reason For Study: HYPERTENSION Procedure This was a 2D Doppler, Color Flow transthoracic echocardiogram. Myocardial strain analysis was performed in this exam to aid in the assessment of cardiac function. Exam performed in department. Left Ventricle Normal LV size. Left ventricular systolic function is normal. The estimated ejection fraction is 65 %. Stage 1 diastolic dysfunction. No regional wall motion abnormalities noted. Right Ventricle Normal RV size. Normal systolic function. Atria Normal left atrium. Normal right atrium. Bubble contrast study negative for right to left interatrial shunt. Mitral Valve Normal mitral valve. Tricuspid Valve Normal tricuspid valve. Mild tricuspid valve insufficiency. Pulmonary artery systolic pressure is 30 mmHg. Aortic Valve Trisinus/trileaflet aortic valve. Mild (1+) aortic valve insufficiency. Pulmonic Valve Normal pulmonic valve. Great Vessels Normal aortic root. The pulmonary artery is normal size. Normal inferior vena cava. Pericardium/Pleural No pericardial effusion. Medication 22 gauge I.V. with prn adaptor inserted into left arm. Performed a rapid injection of agitated mix of 9 cc saline and 1cc air to assess for atrial septal defect. MMode/2D Measurements & Calculations LVIDd: 3.9 cm IVSd: 0.77 cm Ao root diam: 3.2 cm LVIDs: 2.8 cm LVPWd: 0.84 cm RVDd: 3.1 cm FS: 28.7 % LAV(MOD-bp): 37.0 ml LVAd ap4: 23.5 cm2 SV(MOD-sp4): 42.6 ml LAV(MOD-bp) Indexed: 20.5 ml/m2 EDV(MOD-sp4): 64.1 ml LAV(MOD-sp2): 35.7 ml EDV(sp4-el): 66.8 ml LAV(MOD-sp4): 37.2 ml LVAs ap4: 11.9 cm2 ESV(MOD-sp4): 21.4 ml ESV(sp4-el): 22.4 ml EF(MOD-sp4): 66.6 % EF(sp4-el): 66.5 % SV(sp4-el): 44.5 ml LA A4 area: 14.8 cm2 LA dimension(2D): 3.5 cm RA A4 area: 12.3 cm2 Time Measurements MV dec time: 0.20 sec Doppler Measurements & Calculations MV E max jacob: 68.0 cm/sec Lat Peak E' Jacob: 8.3 cm/sec Med Peak E' Jacob: 5.6 cm/sec MV A max jacob: 96.1 cm/sec E/E' lat: 8.2 E/E' med: 12.1 MV E/A: 0.71 Ao V2 max: 138.9 cm/sec AI max jacob: 417.2 cm/sec LV V1 max: 126.9 cm/sec Ao max P.7 mmHg AI max P.6 mmHg LV V1 max P.4 mmHg AI dec slope: 160.3 cm/sec2 AI P1/2t: 762.3 msec PA V2 max: 99.8 cm/sec TR max jacob: 261.6 cm/sec TR max P.4 mmHg Interpretation Summary Normal LV size. Left ventricular systolic function is normal. The estimated ejection fraction is 65 %. Stage 1 diastolic dysfunction. Pulmonary artery systolic pressure is 30 mmHg. Mild (1+) aortic valve insufficiency. The global longitudinal strain is normal. The global longitudinal strain = -20.3 % (normal). Ordering Physician: Jamir Jeronimo Referring Physician: JUSTICE WHITT Performed By: Jael Monaco RDCS
--- NOTE | 2020-10-11 13:53 | CT_ITS ---
STUDY: CARDIAC CALCIUM SCORING - CT CHEST- ADDENDUM REASON FOR EXAM: Assess pulmonary parenchyma and mediastinal structures. RADIATION DOSAGE (If Supplied By Facility): CTDIvol = ( 12.19 ) mGy, DLP = ( 219.42 ) mGycm Individualized dose optimization techniques were used for this CT. ? TECHNIQUE: Axial non-enhanced images were acquired through the heart for the sole purpose of measuring coronary artery calcium. A field of view limited from the base of the heart to the upper abdomen was reviewed to assess the lung parenchyma and soft tissues. COMPARISON: None. FINDINGS: The lungs are normal. There is no demonstrated pleural abnormality. Normal heart size and pericardium. Multiple mediastinal and right hilar calcified lymph nodes are present. Normal unenhanced pulmonary arteries. Normal aorta arch and descending thoracic aorta. No demonstrated aneurysm. There are multi-level degenerative changes of the thoracic spine. There is no demonstrated acute or significant abnormality of the visualized upper abdomen. A small to moderate size hiatal hernia is present. CT/Limited Chest CT w/CCTA IMPRESSION: No acute process or pulmonary mass. Electronically Signed: Roger Damico MD at 23:41 EST , Service support ,
[2020-10-11 13:57] VITALS: BP 144/74; PULSE 65; RESP 14; O2SAT 97; BMI 36.1
--- NOTE | 2020-10-11 15:32 | CA.SCORE ---
Calcium Scoring Date of Study:: 10/11/20 Coronary Calcium Scoring: High-resolution Computed Tomographic imaging of the chest was performed on [10/11/2020], with particular attention paid to the coronary arteries. Images from the examination were analyzed for the presence and extent of coronary artery calcification , using coronary calcium quantification software. The patient tolerated the procedure well and there were no complications. The results of the coronary calcification analysis are provided below. - Findings Left Main (LM): 0 Left Anterior Descending (LAD): 0 Left Circumflex (LCX): 0 Right Coronary Artery (RCA): 0 Total Agatston Score: 0 Percentile Rankin Calcium Scoring Interpretation: 0 No identifiable atherosclerotic plaque. Very low cardiovascular disease risk. <5% chance of presence coronary artery disease A Negative Examination 1-10 Minimal Plaque burden. Significant coronary artery disease very unlikely. 11-100 Mild plaque burden. Likely mild or minimal coronary atherosclerosis. 101-400 Moderate plaque burden Moderate non-obstructive coronary artery disease highly likely. Over 400 Extensive plaque burden. High likelihood of at least one significant coronary stenosis (>50% diameter) Calcium Score: 0 Negative Examination - For assessment of cardiac risk should include an assessment of all conventional risk factors and the scores and percentile rankings noted herein should be taking into consideration.
== END ==
PROVIDERS: PCP Family Medicine; Referring Provider Internal Medicine Cardiovascular Disease; Visit Provider Internal Medicine Cardiovascular Disease
DX: I34.0 Nonrheumatic mitral (valve) insufficiency (principal); I10 Essential (primary) hypertension; E78.5 Hyperlipidemia, unspecified
CPT/HCPCS: 75571; 76380; 93306; 93356; A4216

== ENCOUNTER → 2021-06-08 14:27 | Outpatient (CLI) | payer OTHER, SELFPAY ==
[2019-10-14 13:50] VITALS: BMI 36.2
--- NOTE | 2021-06-08 14:31 | RAD_ITS ---
STUDY: X-RAY - PELVIS REASON FOR EXAM: Female, 70 years old. BACK PAIN TECHNIQUE: One view of the pelvis was obtained. COMPARISON: None. FINDINGS: There is a non-specific bowel gas pattern. Normal visualized soft tissue structures. Normal bilateral iliac wings, sacroiliac joints and visualized sacrum. Normal visualized bilateral superior and inferior pubic rami. Normal pubic symphysis. Normal ischial tuberosities. Normal visualized right femoral head. Normal right acetabulum. Normal right hip joint. Normal visualized left femoral head. Normal left acetabulum. Normal left hip joint. RAD/Pelvis 1 or 2 Views IMPRESSION: Normal x-ray examination of the pelvis. Electronically Signed: Maximilian Sibley MD at 8:11 EDT Tel , Service support ,
--- NOTE | 2021-06-08 14:31 | RAD_ITS ---
STUDY: X-RAY - LUMBAR SPINE REASON FOR EXAM: Female, 70 years old. BACK PAIN TECHNIQUE: 5 view(s) of the lumbar spine were obtained. COMPARISON: None FINDINGS: Normal lumbar lordosis. There is no substantial scoliosis. There is a normal alignment of the vertebrae. Normal vertebral bodies and endplates. Focal disc space narrowing and osteophyte formation at L1/L2 consistent with degenerative disc disease. The soft tissue structures are unremarkable. RAD/L/S Spine Min 4 Views IMPRESSION: Focal degenerative disc disease at L1/L2. Electronically Signed: Maximilian Sibley MD at 8:10 EDT Tel , Service support ,
== END ==
PROVIDERS: Referring Provider Internal Medicine Medical Oncology; Visit Provider Internal Medicine Medical Oncology
DX: M54.40 Lumbago with sciatica, unspecified side (principal); M81.0 Age-related osteoporosis without current pathological fracture
CPT/HCPCS: 72110; 72170

== ENCOUNTER → 2021-09-13 12:50 | Outpatient (CLI) | payer OTHER, SELFPAY ==
[2019-10-14 13:50] VITALS: BMI 36.2
--- NOTE | 2021-09-13 12:52 | BI_ITS ---
MAMMOGRAPHY - BILATERAL SCREENING REASON FOR EXAM: Female, 71 years old. Routine annual screening examination. PERTINENT HISTORY: Personal history of breast cancer. Prior right lumpectomy with radiation treatment. Prior right stereotactic breast biopsy. Grandmother with breast cancer. TECHNIQUE: Digital bilateral breast karne (3D mammographic acquisition) in the CC and MLO projections. 2-D mediolateral oblique (MLO) and craniocaudad (CC) views of both breasts were obtained. CAD: Full Field Digital Mammography with Computer Added Detection was performed. COMPARISON: Comparison is made with prior EXAMINATION dated 02/05/2019 and 09/12/2020. FINDINGS: Breast Composition: The breasts are heterogeneously dense, which may obscure small masses. There are no dominant masses or suspicious calcifications. Surgical clips are once again seen in deep axillary region of the right breast and complex prior dissection. The patient is status post lumpectomy in the upper outer of the right breast. No other significant abnormalities are identified. There has been no significant change since the prior study. BI/SCRN MAMM (CAD)W/KAREN BILAT IMPRESSION: Stable bilateral screening mammogram. Yearly follow-up mammogram recommended. (A) ASSESSMENT CATEGORY: BIRADS Category 2: Benign. A letter regarding these results will be sent to the patient by the facility within 30 days. Approximately 10% of breast cancers are not detected by mammography. A normal mammogram should not delay biopsy of a clinically suspicious abnormality. [id number] Electronically Signed: Stoney Castañeda MD at 13:29 EST , Service support ,
== END ==
PROVIDERS: Visit Provider Internal Medicine Medical Oncology
DX: Z12.31 Encounter for screening mammogram for malignant neoplasm of breast (principal)
CPT/HCPCS: 77063; 77067

== ENCOUNTER 2022-04-09 12:00 | Day surgery (SDC) | payer OTHER, SELFPAY ==
[2019-10-14 13:50] VITALS: BMI 36.2
[2022-04-09] MEDS: Lactated Ringers 1,000 ML 15 ML IV (12:15)
[2022-04-09 12:28] VITALS: BP 140/70; PULSE 65; RESP 16; TEMP 37.6; O2SAT 97; BMI 35.0
--- NOTE | 2022-04-09 13:00 | COLBX_PTH ---
PATIENT: SUMIT BOLTON LOC: EN U#:[id number] AGE/SX: 71/F ROOM: RE04/09/[address]: Dr. Xu Sloan DO : 1950 BED: DIS: 04/09/2022 SPEC #: [id number] RECD: 04/09/22 14:42 STATUS: VICENTE CASAS #: [id number] SINA: 04/09/22 13:[address]: Xu Sloan DEPT: SURGICAL PATHOLOGY RECD BY: Sabra Ventura ENTERED: 04/10/22 07:48 SP TYPE: COLON BX OTHR DR: VAISHNAVI Avila Tissues: A - SPLENIC FLEXURE B - Descending colon Procedures: Surgery Specimen Level IV HEADER OPERATION: Colonoscopy ? open access (MAC) PRE-OP DIAGNOSIS: Screening TISSUE SUBMITTED: A ? Polyp splenic flexure, B ? Submucosal lesion descending colon MICROSCOPIC DIAGNOSIS A. Colonic polyp at splenic flexure, biopsy: Fragments of tubular adenoma. B. Descending colon, biopsy: Fragments of hyperplastic polyp. See comment. AM:minnie 04/11/2022 COMMENT The submucosa contains benign fatty tissue and may represent a lipoma. Clinical correlation is suggested. MICROSCOPIC DESCRIPTION Slides are reviewed. GROSS DESCRIPTION A - Received in fixative is one container labeled with the patient's name and designated splenic flexure. The specimen consists of two irregular fragments of light olmedo soft tissue that in aggregate measure 0.6 x 0.3 x 0.1 cm. The specimen is totally submitted in one cassette. B - Received in fixative is one container labeled with the patient's name and designated submucosal lesion descending colon. The specimen consists of multiple irregular fragments of light olmedo soft tissue that in aggregate measure 0.8 x 0.5 x 0.1 cm. The specimen is totally submitted in one cassette. / SJ:minnie 04/10/2022 TC:5 CPT: 37333 x2
--- NOTE | 2022-04-09 13:05 | PCM.HP.STD ---
HPI - General General Date of Admission: 04/09/22 Date of Service: 04/09/22 Chief Complaint: Screening: Colonoscopy HPI Narrative SUMIT BOLTON, is a 71 F who presents today for screening colonoscopy. She has a history of hyper fibrocystic disease of the breast, was found to have abnormal mammogram on the right.? She had ultrasound guided core needle biopsy in the right upper outer quadrant on 09/02/2019.? 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 Harman had discussed further management options including lumpectomy, lumpectomy with axillary sentinel node biopsy, the role of mastectomy. She had R breast lumpectomy and sentinel node biopsy on 09/16/2019. Finished Radiation therapy today 11/17/2019. Started Tamoxifen in December 2019.? She also has a strong family history of colon cancer. She arrives here for screening colonoscopy. She is not have any problems with her bowels. She not have any nausea. She not have any vomiting. She denied any chest pain or shortness of breath. All other 16 review of systems are negative except those pertinent positive mentioned HPI. 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 PONV (postoperative nausea and vomiting) Shortness of breath on exertion Home Medications levothyroxine 125 mcg tablet 62.5 mcg PO DAILY #45 tabs 08/24/19 [History Last Taken Unknown] famotidine 10 mg tablet 10 mg PO QHS 09/13/19 [History Last Taken Unknown] atorvastatin 10 mg tablet 10 mg PO QHS 08/17/20 [History Last Taken Unknown] tamoxifen 20 mg tablet 20 mg PO DAILY #90 tabs 12/05/21 [Rx Last Taken Unknown] multivitamin 1 tab PO DAILY 04/04/22 [History Last Taken Unknown] naproxen 250 mg tablet 250 mg PO BID 04/04/22 [History Last Taken Unknown] sertraline 50 mg tablet (Zoloft) 1 tab PO DAILY 04/04/22 [History Last Taken Unknown] Allergy/AdvReac Type Severity Reaction Status Date / Time levofloxacin [From Levaquin] Allergy Intermediate Other Verified 04/04/22 12:03 Sulfa (Sulfonamide Allergy Mild Mucosal Verified 04/04/22 12:03 Antibiotics) lesions Family History Mother Skin cancer High cholesterol Arthritis Heart disease Hypertension Son Diabetes Brother Colon cancer Father Stomach cancer Grandmother Breast cancer Surgical History History of lumpectomy of right breast (09/16/19) Hx of ovarian cystectomy Hx of right breast biopsy Hx of tonsillectomy Hx of tubal ligation Social History Smoking Status: Never smoker second hand exposure: No alcohol intake: current alcohol intake frequency: holidays/special occasions only substance use type: does not use caffeine: Yes what type of physical activity do you participate in: none frequency: does not exercise seatbelt use: always ROS Review of Systems ROS Unobtainable: other Constitutional Constitutional: Denies fatigue, fever(s), poor appetite, weight gain or weight loss ENT HEENT: Denies mouth lesions Cardiovascular Cardiovascular: Denies abdominal bloating, abdominal edema or abdominal pain Respiratory/Chest Respiratory/Chest: Denies change in mental status, change in phlegm color, chest congestion or chest tightness Gastrointestinal Gastrointestinal: Denies belching, bloating, change in bowel habits, change in stool character, chewing difficulty, coffee ground emesis, constipation, cramping, diarrhea, dyspepsia, dysphagia, early satiety, excessive flatus, fecal incontinence, heartburn, hematemesis, hematochezia, hemorrhoids, loose stools, melena, nausea, odynophagia, rectal bleeding, tenesmus, vomiting or weight changes Genitourinary Genitourinary: Denies abdominal discomfort, burning urination or itching Musculoskeletal Musculoskeletal: Reports as per HPI; Denies muscle weakness or myalgias Integumentary Integumentary: Denies jaundice Neurologic Neurologic: Denies lack of coordination or weakness Psychiatric Psychiatric: Denies confusion, depression, memory loss, mood swings, paranoia or suicidal ideation Endocrine Endocrinology: Denies systems reviewed and no addt'l complaints, except as documented Hematologic/Lymphatic Hematologic/Lymphatic: Denies anemia, easy bleeding, easy bruising or lymphadenopathy Allergic/Immunologic Allergic/Immunologic: Denies systems reviewed and no addt'l complaints, except as documented Vital Signs Vital Signs Vital Signs: 04/09/22 12:28 04/09/22 12:28 Temperature 99.7 F H Temperature Source Temporal Pulse Rate 65 Respiratory Rate 16 Respiratory Pattern Normal Blood Pressure 140/70 H Blood Pressure Mean 93 Blood Pressure Source Monitor Blood Pressure Position Semi-Fowlers Blood Pressure Location Right Arm Pulse Ox 97 Oxygen Delivery Method Room Air Weight Weight: 179 lb 7.3 oz Body Mass Index (BMI) 35.0 Physical Exam Const alert General Appearance: cooperative Orientation / Consciousness: oriented to person HEENT hearing grossly normal bilaterally Head and Scalp: normal to inspection Face and Sinus: face symmetric Nose: external nose normal Mouth: oral and palatal mucosa normal Eyes conjunctivae normal General Eye: normal appearance of both eyes Neck full ROM General: normal visual inspection Lymph Lymphatic: no lymphadenopathy noted Chest inspection of chest normal and palpation of chest normal Chest: symmetrical chest wall rise Resp normal respiratory effort Effort and Inspection: able to speak in complete sentences Cardio regular rate GI non-distended Percussion: normal to percussion Rectal Exam: deferred Neuro Speech: speech normal Gait (Neuro): normal gait Assessment & Plan Assessment/Plan (1) Encounter for screening for malignant neoplasm of colon: PLAN: She will undergo screening colonoscopy. She was explained alternatives, risk, benefits including not withstanding bleeding, infection, sepsis, perforation, need for additional . Have an ASA of 1.
[2022-04-09 13:40] VITALS: BP 140/70; BP 95/58; PULSE 60; RESP 16; TEMP 37.2; O2SAT 96
--- NOTE | 2022-04-09 13:42 | OP.COLON_ITS ---
Patient Name: Bridgett Kyle Procedure Date: 04/09/2022 1:05 PM Date of : 1950 Age: 71 Procedure: Colonoscopy Indications: Screening for colorectal malignant neoplasm Providers: Xu Sloan DO Medicines: Monitored Anesthesia Care Patient Profile: This is a 71 year old female. Refer to note in patient chart for documentation of history and physical. Last Colonoscopy: 5 years ago. Complications: No immediate complications. Procedure: Pre-Anesthesia Assessment: - Prior to the procedure, a History and Physical was performed, and patient medications and allergies were reviewed. The risks and benefits of the procedure and the sedation options and risks were discussed with the patient. All questions were answered and informed consent was obtained. Patient identification and proposed procedure were verified by the physician in the pre-procedure area. Mental Status Examination: alert and oriented. Airway Examination: normal oropharyngeal airway and neck mobility. Respiratory Examination: clear to auscultation. CV Examination: normal. Prophylactic Antibiotics: The patient does not require prophylactic antibiotics. Prior Anticoagulants: The patient has taken no previous anticoagulant or antiplatelet agents. After reviewing the risks and benefits, the patient was deemed in satisfactory condition to undergo the procedure. The anesthesia plan was to use moderate sedation / analgesia (conscious sedation). Immediately prior to administration of medications, the patient was re-assessed for adequacy to receive sedatives. The heart rate, respiratory rate, oxygen saturations, blood pressure, adequacy of pulmonary ventilation, and response to care were monitored throughout the procedure. The physical status of the patient was re-assessed after the procedure. After I obtained informed consent, the scope was passed under direct vision. Throughout the procedure, the patient's blood pressure, pulse, and oxygen saturations were monitored continuously. The colonoscope was introduced through the anus and advanced to the terminal ileum. The colonoscopy was performed without difficulty. The patient tolerated the procedure well. The quality of the bowel preparation was good. Scope In: 1:16:07 PM Scope Withdrawal Time 0 hours 12 minutes 20 seconds Scope Out: 1:32:34 PM Total Procedure Duration Time 0 hours 16 minutes 27 seconds Findings: The perianal and digital rectal examinations were normal. A 5 mm polyp was found in the splenic flexure. The polyp was sessile. The polyp was removed with a cold snare. Resection and retrieval were complete. Verification of patient identification for the specimen was done. Estimated blood loss was minimal. There was a medium-sized lipoma, 20 mm in diameter, in the descending colon. Biopsies were taken with a cold forceps for histology. Non-bleeding internal hemorrhoids were found during retroflexion. The hemorrhoids were Grade I (internal hemorrhoids that do not prolapse). Impression: - One 5 mm polyp at the splenic flexure, removed with a cold snare. Resected and retrieved. - Medium-sized lipoma in the descending colon. Biopsied. Recommendation: - Discharge patient to home. - Resume previous diet. - Continue present medications. - Await pathology results. - Repeat colonoscopy in 5 years for surveillance. - Return to GI office. Procedure Code(s): --- Professional --- 73707, Colonoscopy, flexible; with removal of tumor(s), polyp(s), or other lesion(s) by snare technique 55983, 59, Colonoscopy, flexible; with biopsy, single or multiple CPT copyright 2017 [employer]. All rights reserved. The codes documented in this report are preliminary and upon bulk picker review may be revised to meet current compliance requirements. Xu Sloan DO 04/09/2022 1:42:18 PM This report has been signed electronically. Number of Addenda: 1 Note Initiated On: 04/09/2022 1:05 PM Addendum Number: 1 Addendum Date: 07/16/2022 6:05:18 AM MAC was used as sedation for this procedure. Xu Sloan DO 07/16/2022 6:05:23 AM This report has been signed electronically.
--- NOTE | 2022-04-09 13:43 | OP.CCLET_ITS ---
07/16/2022 Juan J Avila Re : Colonoscopy procedure for Bridgett Kyle Dear Aniket This procedure was performed on Saturday, April 09, 2022. My impressions and recommendations are as follows: Impressions : - One 5 mm polyp at the splenic flexure, removed with a cold snare. Resected and retrieved. - Medium-sized lipoma in the descending colon. Biopsied. Recommendations : - Discharge patient to home. - Resume previous diet. - Continue present medications. - Await pathology results. - Repeat colonoscopy in 5 years for surveillance. - Return to GI office. My findings are described in the full procedure note, which is enclosed. If I can be of further assistance, please feel free to contact me at . Sincerely, Xu Sloan, 04/09/2022 1:42:18 PM This report has been signed electronically.
[2022-04-09 13:45] VITALS: BP 106/59; BP 140/70; PULSE 54; RESP 16; O2SAT 94
[2022-04-09 13:50] VITALS: BP 106/58; BP 140/70; PULSE 51; RESP 16; O2SAT 95
[2022-04-09 13:55] VITALS: BP 106/53; BP 140/70; PULSE 49; RESP 16; TEMP 36.9; O2SAT 96
[2022-04-09 14:27] VITALS: BP 140/70
== END 2022-04-09 14:37 | disposition home or self-care (01) ==
LOC: EN 12:01 → AC 12:02
PROVIDERS: Visit Provider Internal Medicine Gastroenterology
PROC: 0DJD8ZZ Inspection of Lower Intestinal Tract, Via Natural or Artificial Opening Endoscopic (ICD-10-PCS; CPT 45378; principal; 2022-04-09 12:55)
DX: Z12.11 Encounter for screening for malignant neoplasm of colon (principal); C18.5 Malignant neoplasm of splenic flexure; M19.90 Unspecified osteoarthritis, unspecified site; K21.9 Gastro-esophageal reflux disease without esophagitis; Z86.000 Personal history of in-situ neoplasm of breast; E03.9 Hypothyroidism, unspecified; E78.5 Hyperlipidemia, unspecified; G43.909 Migraine, unspecified, not intractable, without status migrainosus; E66.9 Obesity, unspecified; Z79.899 Other long term (current) drug therapy; Z68.35 Body mass index [BMI] 35.0-35.9, adult; M81.0 Age-related osteoporosis without current pathological fracture; D17.5 Benign lipomatous neoplasm of intra-abdominal organs; Z80.0 Family history of malignant neoplasm of digestive organs
CPT/HCPCS: 45380; 45385; 88305; J7120; J2405

== ENCOUNTER → 2022-05-28 | Outpatient (CLI) | payer OTHER, SELFPAY ==
[2019-10-14 13:50] VITALS: BMI 36.2
--- NOTE | 2022-05-28 13:58 | BD_ITS ---
STUDY: DUAL ENERGY X-RAY ABSORPTIOMETRY / DXA REASON FOR EXAM: Female, 71 years old. SCREENING TECHNIQUE: Bone Mineral Density (BMD) measurements of lumbar spine and bilateral hips were obtained. COMPARISON: Comparison is made with prior study dated 11/23/2019. FINDINGS: Lumbar Spine (L1-L4): g/cm2 (0.762) / T-score (-3.1) / Z-score (-0.9) Findings are suggestive of osteoporosis with a high fracture risk. Left Femur Total: g/cm2 (0.805) / T-score (-1.1) / Z-score (0.4) Left Femoral Neck: g/cm2 (0.634) / T-score (-1.9) / Z-score (-0.2) Right Femur Total: g/cm2 (0.746) / T-score (-1.6) / Z-score (-0.1) Right Femoral Neck: g/cm2 (0.582) / T-score (-2.4) / Z-score (-0.6) The T-Scores on the most recent prior examination were: Lumbar Spine (L1-L4): There has been improvement of bone density since the previous examination. Left Femur Total: which represents an improvement of 7.1%. Right Femur Total: which represents an improvement of 5.3%. BD/Dexa Bone Density Study IMPRESSION: The patient is considered osteoporotic as outlined below according to [employer] Organization (WHO) criteria with a high fracture risk. There has been improvement of bone density since the previous examination. Reference Information: The T-score is the number of standard deviations above or below the standard which is normal for young adults at their peak bone mineral density. The World Health Organization (WHO) interprets the T-scores as follows: Above -1 Normal bone density Between -1 and -2.5 Osteopenia Equal to / or below -2.5 Osteoporosis As a practical clinical guideline, osteopenia may be graded as follows: Mild -1 through -1.5 Moderate -1.6 through -2.0 Severe -2.1 through -2.4 The Z-score is the number of standard deviations above or below age-matched controls. A Z-score of less than -1.5 would be considered abnormal. References: 1. NIH Osteoporosis and Related Bone Diseases www osteo.org 2. International Society for Clinical Densitometry www iscd.org 3. National Osteoporosis Foundation www nof.org Electronically Signed: Stoney Castañeda MD at 12:28 EDT ,
== END | disposition home or self-care (01) ==
LOC: OPBD 13:52
PROVIDERS: Referring Provider Internal Medicine Medical Oncology; Visit Provider Internal Medicine Medical Oncology
DX: M81.0 Age-related osteoporosis without current pathological fracture (principal)
CPT/HCPCS: 77080

== ENCOUNTER → 2022-06-10 | Outpatient (CLI) | payer OTHER, SELFPAY ==
[2019-10-14 13:50] VITALS: BMI 36.2
--- NOTE | 2022-06-10 09:26 | US_ITS ---
STUDY: ULTRASOUND BREAST - RIGHT REASON FOR EXAM: Female, 71 years old. Palpable lump in the inferior aspect of the right breast. TECHNIQUE: Axial and longitudinal images of the RIGHT breast were performed with a high resolution ultrasound transducer. # OF IMAGES: 28 COMPARISON: Comparison is made with prior mammogram done earlier in the day. FINDINGS: RIGHT Breast: The inferior lateral aspect of the right breast was examined with ultrasound. There is heterogeneously dense fibroglandular tissue. No sonographic abnormality is seen. US/Breast Limited Unilateral IMPRESSION: No sonographic abnormality is seen. Clinical correlation recommended. ASSESSMENT CATEGORY: BIRADS Category 2: Benign. A letter regarding these results will be sent to the patient by the facility within 30 days. Electronically Signed: Stoney Castañeda MD at 10:42 EDT ,
--- NOTE | 2022-06-10 09:26 | BI_ITS ---
MAMMOGRAPHY - UNILATERAL DIAGNOSTIC: RIGHT BREAST REASON FOR EXAM: Female, 71 years old. Palpable lump at the 6 o''clock position of the breast. PERTINENT HISTORY: Personal history of breast cancer. Prior right lumpectomy with radiation treatment. Grandmother with breast cancer. TECHNIQUE: Digital unilateral breast dunia (3D mammographic acquisition) in the CC and MLO projections. 2-D mediolateral oblique (MLO) and craniocaudad (CC) views of both breasts were obtained. CAD: Full Field Digital Mammography with Computer Added Detection was performed. COMPARISON: Comparison is made with prior examination dated 09/13/2021. FINDINGS: Breast Composition: The breasts are heterogeneously dense, which may obscure small masses. 1 significant, the patient is status post lumpectomy in the deep upper lateral aspect of the right breast with evidence of postoperative scarring and architectural distortion. There has been no change. No other significant abnormalities are identified. BI/DIAG MAMM W/CAD, UNILAT IMPRESSION: Stable unilateral diagnostic mammogram. With the patient''s history of a palpable lump at the 6 o''clock position of the breast, correlation with ultrasound is recommended. ASSESSMENT CATEGORY: BIRADS Category 0: Incomplete. Need additional imaging evaluation. A letter regarding these results will be sent to the patient by the facility within 30 days. Approximately 10% of breast cancers are not detected by mammography. A normal mammogram should not delay biopsy of a clinically suspicious abnormality. Electronically Signed: Stoney Castañeda MD at 10:25 EDT ,
== END | disposition home or self-care (01) ==
LOC: OPBI 09:25
PROVIDERS: Visit Provider Internal Medicine Medical Oncology
DX: N63.10 Unspecified lump in the right breast, unspecified quadrant (principal); Z85.3 Personal history of malignant neoplasm of breast
CPT/HCPCS: 76642; 77061; 77065; G0279

== ENCOUNTER 2022-09-16 12:10 | Outpatient (CLI) | payer OTHER, SELFPAY ==
[2019-10-14 13:50] VITALS: BMI 36.2
--- NOTE | 2022-09-16 12:11 | BI_ITS ---
MAMMOGRAPHY - BILATERAL SCREENING REASON FOR EXAM: Female, 72 years old. Routine annual screening examination. PERTINENT HISTORY: Personal history of breast cancer. Prior right lumpectomy with radiation. Grandmother with breast cancer. TECHNIQUE: Digital bilateral breast karen (3D mammographic acquisition) in the CC and MLO projections. 2-D mediolateral oblique (MLO) and craniocaudad (CC) views of both breasts were obtained. CAD: Full Field Digital Mammography with Computer Added Detection was performed. COMPARISON: Comparison is made with prior study dated 06/14/2021 and 09/12/2020. FINDINGS: Breast Composition: The breasts are heterogeneously dense, which may obscure small masses. There are no dominant masses or suspicious calcifications. Surgical clips are seen in the deep upper aspect of the right breast in keeping with history of prior lumpectomy. No other significant abnormalities are identified. There has been no significant change since the prior study. BI/SCRN MAMM (CAD)W/KAREN BILAT IMPRESSION: Stable bilateral screening mammogram. Yearly follow-up mammogram recommended. (A) ASSESSMENT CATEGORY: BIRADS Category 2: Benign. A letter regarding these results will be sent to the patient by the facility within 30 days. Approximately 10% of breast cancers are not detected by mammography. A normal mammogram should not delay biopsy of a clinically suspicious abnormality. [id number] Electronically Signed: Stoney Castañeda MD at 13:19 EST ,
== END 2022-09-16 23:59 | disposition home or self-care (01) ==
LOC: OPBI 12:10
PROVIDERS: PCP Internal Medicine; Visit Provider Internal Medicine Medical Oncology
DX: Z12.31 Encounter for screening mammogram for malignant neoplasm of breast (principal); Z80.3 Family history of malignant neoplasm of breast; Z85.3 Personal history of malignant neoplasm of breast
CPT/HCPCS: 77063; 77067

== ENCOUNTER 2022-11-13 10:31 | Day surgery (SDC) | payer OTHER, SELFPAY ==
[2019-10-14 13:50] VITALS: BMI 36.2
--- NOTE | 2022-11-13 | GASB_PTH ---
PATIENT: SUMIT BOLTON LOC: EN U#:[id number] AGE/SX: 72/F ROOM: RE11/13/[address]: Dr. Xu Sloan DO : 1950 BED: DIS: 11/13/2022 SPEC #: [id number] RECD: 11/13/22 15:00 STATUS: VICENTE YESSENIA #: [id number] SINA: 11/13/22 00:[address]: Xu Sloan DEPT: SURGICAL PATHOLOGY RECD BY: Rajesh Nicholson ENTERED: 11/14/22 11:02 SP TYPE: Gastric Bx OT DR: Dr. Geremias Holder MD Tissues: A - Gastric mucous membrane B - Esophageal mucous membrane Procedures: Special Stain Group II Surgery Specimen Level IV Alcian Blue/PAS (control) HEADER OPERATION: [place] [place] PRE-OP DIAGNOSIS: GERD TISSUE SUBMITTED: A ? Gastric antrum biopsy, B ? Distal esophagus biopsy MICROSCOPIC DIAGNOSIS A. Gastric antrum, biopsy: Mild gastritis. See microscopic description and comment. B. Distal esophagus, biopsy: Fragments of gastroesophageal mucosa with moderate chronic inflammation. Intestinal metaplasia (goblet cell metaplasia) not identified. See comment. SJ:rg 11/15/2022 COMMENT A. The results of immunohistochemistry for Helicobacter pylori will be reported separately ([id number]). MICROSCOPIC DESCRIPTION Slides are reviewed. A. The specimen shows fragments of gastric mucosa with chronic inflammatory cell infiltrates in the lamina propria consisting of lymphocytes and plasma cells, consistent with mild chronic gastritis. GROSS DESCRIPTION A - Received in fixative is one container labeled with the patient's name and designated gastric antrum biopsy. The specimen consists of multiple irregular fragments of light olmedo soft tissue that in aggregate measure 0.6 x 0.3 x 0.1 cm. The specimen is totally submitted in one cassette. B - Received in fixative is one container labeled with the patient's name and designated distal esophagus biopsy. The specimen consists of multiple irregular fragments of light olmedo soft tissue that in aggregate measure 0.6 x 0.6 x 0.1 cm. The specimen is totally submitted in one cassette. / DAE:minnie 11/14/2022 TC:3 CPT: 69205 x2, 89825
[2022-11-13 11:02] VITALS: BP 125/49; PULSE 54; RESP 17; TEMP 36.8; O2SAT 98; BMI 33.1
[2022-11-13] MEDS: Lactated Ringers 1,000 ML 15 ML IV (11:02)
--- NOTE | 2022-11-13 11:07 | PCM.HP.BLA ---
History and Physical Date of Admission: 11/13/22 72 F who presents to the office today for GERD. Her acid reflux is controlled with famotidine 10 mg every evening and keeping the HOB elevated. She has lost about 10 lbs recently on Noom, thinks that has already improved her reflux. No nausea, vomiting, dysphagia. No abdominal pain. Bowels are regular, no melena or hematochezia.? Positive family history of esophageal and stomach cancer in her father who smoked. FH colon cancer in her brother. Had screening colonoscopy by Dr Sloan in 03/2022, one tubular adenoma, repeat in 03/2027 ROS Const Constitutional: Positive for weight change; No fatigue ENT ENT: No difficulty swallowing Gastro GI: No abdominal pain, belching, bloating, change in bowel habits, change in stool character, coffee ground emesis, constipation, cramping, diarrhea, heartburn, difficulty swallowing, feeling full early, excessive flatus, incontinent of stools, Vomiting blood/hematemesis, Blood in stool, loose stools, Black,tarry stools, nausea/dyspepsia, pain with swallowing, vomiting or other Musc Musculoskeletal: Positive for back pain and stiffness; No joint pain Skin Skin: No yellowing of the eye or itchy eyes Psych Psychiatric: No anxiety and No depression Endo Endocrine: Positive for weight change; No fatigue Aller/Imm Allergy/Immunologic: No itchy eyes Orion/Lymp Hematologic/Lymphatic: No easy bleeding or easy bruising Exam Const General: cooperative and comfortable Nutritional Appearance: obese Orientation: alert, awake and oriented x3 Quality Reporting Tobacco Screening ([facility]) Smoking Status: Never smoker Assessment and Plan Assessment and Plan (1) GERD (gastroesophageal reflux disease): ?Status:?Chronic ?Plan: Acid reflux mostly controlled with [id number] and HOB elevated. She is working on weight loss. Father had esophageal and stomach cancer. We will get EGD w/ office f/u 2 wks later. I have examined the patient and the H&P has been reviewed. There are no clinical changes since date of exam.
--- NOTE | 2022-11-13 11:45 | IMM_PTH ---
PATIENT: SUMIT BOLTON LOC: EN U#:[id number] AGE/SX: 72/F ROOM: RE11/13/[address]: Dr. Xu Sloan DO : 1950 BED: DIS: 11/13/2022 SPEC #: [id number] RECD: 11/14/22 14:23 STATUS: VICENTE REQ #: [id number] SINA: 11/13/22 11:[address]: Xu Sloan DEPT: IMMUNOHISTOCHEMISTRY RECD BY: Jackie Kessler ENTERED: 11/14/22 14:23 SP TYPE: IMMUNO OTHR DR: Dr. Geremias Holder MD Tissues: A - Stomach, NOS Procedures: H Pylori (initial) PHYSICIAN & INSTITUTION [place] [id number] SPECIMEN INFORMATION: Tissue Source: A ? Gastric antrum biopsy Clinical Info: GERD Specimen Number: [id number] CPT code: 31993 METHODOLOGY: Deparaffinized sections of prefer/formalin-fixed tissue or PAP/DQ stained slides are incubated with monoclonal/polyclonal antibodies/oligonucleotide probes. Localization is made via biotin free immunoperoxidase method. Appropriate controls are performed and reacted as expected. Results on target cell population are indicated in the following table: RESULTS: ANTIBODY / CLONE RESULT Block A H Pylori (polyclonal) negative These tests were developed and their performance characteristics determined by [facility]. They may not have been cleared or approved by the U.S. Food and Drug Administration. The FDA has determined that such clearance or approval is not necessary. The above immunohistochemical/dualISH markers are ordered and reviewed by the Pathologist. INTERPRETATION: A. Gastric antrum, biopsy: Negative for Helicobacter pylori organisms. DAE:minnie 11/18/2022
[2022-11-13 12:05] VITALS: BP 105/71; BP 125/49; PULSE 80; RESP 16; TEMP 36.8; O2SAT 93
--- NOTE | 2022-11-13 12:05 | OP.CCLET_ITS ---
11/13/2022 Geremias Holder MD [address] [place] [address] [place] [address] Re : Upper GI endoscopy procedure for Bridgett Kyle Dear Dr. Holder This procedure was performed on Sunday, November 13, 2022. My impressions and recommendations are as follows: Impressions : - LA Grade A reflux esophagitis. Biopsied. - Medium-sized hiatal hernia. - Erythematous mucosa in the antrum. Biopsied. - No gross lesions in the first portion of the duodenum. Recommendations : - Discharge patient to home. - Resume previous diet. - Continue present medications. - Await pathology results. My findings are described in the full procedure note, which is enclosed. If I can be of further assistance, please feel free to contact me at . Sincerely, Xu Sloan, 11/13/2022 12:05:15 PM This report has been signed electronically.
--- NOTE | 2022-11-13 12:05 | OP.EGD_ITS ---
Patient Name: Bridgett Kyle Procedure Date: 11/13/2022 11:45 AM Date of : 1950 Age: 72 Procedure: Upper GI endoscopy Indications: Heartburn, Suspected esophageal reflux Providers: Xu Sloan DO Medicines: Monitored Anesthesia Care Patient Profile: This is a 72 year old female. Refer to note in patient chart for documentation of history and physical. Patient has symptoms of chronic heartburn. Complications: No immediate complications. Procedure: Pre-Anesthesia Assessment: - Prior to the procedure, a History and Physical was performed, and patient medications and allergies were reviewed. The risks and benefits of the procedure and the sedation options and risks were discussed with the patient. All questions were answered and informed consent was obtained. Patient identification and proposed procedure were verified by the physician in the pre-procedure area. Mental Status Examination: alert and oriented. Airway Examination: normal oropharyngeal airway and neck mobility. Respiratory Examination: clear to auscultation. CV Examination: normal. Prophylactic Antibiotics: The patient does not require prophylactic antibiotics. Prior Anticoagulants: The patient has taken no previous anticoagulant or antiplatelet agents. ASA Grade Assessment: II - A patient with mild systemic disease. After reviewing the risks and benefits, the patient was deemed in satisfactory condition to undergo the procedure. The anesthesia plan was to use monitored anesthesia care (MAC). Immediately prior to administration of medications, the patient was re-assessed for adequacy to receive sedatives. The heart rate, respiratory rate, oxygen saturations, blood pressure, adequacy of pulmonary ventilation, and response to care were monitored throughout the procedure. The physical status of the patient was re-assessed after the procedure. After obtaining informed consent, the endoscope was passed under direct vision. Throughout the procedure, the patient's blood pressure, pulse, and oxygen saturations were monitored continuously. The Endoscope was introduced through the mouth, and advanced to the second part of duodenum. The upper GI endoscopy was accomplished without difficulty. The patient tolerated the procedure well. Scope In: 11:56:47 AM Scope Out: 11:59:55 AM Total Procedure Duration Time 0 hours 3 minutes 8 seconds Findings: LA Grade A (one or more mucosal breaks less than 5 mm, not extending between tops of 2 mucosal folds) esophagitis with no bleeding was found 36 to 37 cm from the incisors. Biopsies were taken with a cold forceps for histology. Verification of patient identification for the specimen was done. Estimated blood loss was minimal. A medium-sized hiatal hernia was present. Patchy mildly erythematous mucosa without bleeding was found in the gastric antrum. Biopsies were taken with a cold forceps for histology. Verification of patient identification for the specimen was done. Estimated blood loss was minimal. No gross lesions were noted in the first portion of the duodenum. Impression: - LA Grade A reflux esophagitis. Biopsied. - Medium-sized hiatal hernia. - Erythematous mucosa in the antrum. Biopsied. - No gross lesions in the first portion of the duodenum. Recommendation: - Discharge patient to home. - Resume previous diet. - Continue present medications. - Await pathology results. Procedure Code(s): --- Professional --- 02441, Esophagogastroduodenoscopy, flexible, transoral; with biopsy, single or multiple CPT copyright 2017 [employer]. All rights reserved. The codes documented in this report are preliminary and upon dormitory supervisor review may be revised to meet current compliance requirements. Xu Sloan DO 11/13/2022 12:05:15 PM This report has been signed electronically. Number of Addenda: 0 Note Initiated On: 11/13/2022 11:45 AM
[2022-11-13 12:10] VITALS: BP 125/49; BP 97/70; PULSE 80; RESP 16; O2SAT 96
[2022-11-13 12:15] VITALS: BP 106/76; BP 125/49; PULSE 78; RESP 16
[2022-11-13 12:20] VITALS: BP 107/80; BP 125/49; PULSE 76; RESP 16; TEMP 36.8; O2SAT 92
[2022-11-13 12:43] VITALS: BP 125/49
== END 2022-11-13 12:46 | disposition home or self-care (01) ==
LOC: EN 10:41 → AC 10:42
PROVIDERS: PCP Internal Medicine; Referring Provider Internal Medicine; Visit Provider Internal Medicine Gastroenterology
PROC: 0DJ08ZZ Inspection of Upper Intestinal Tract, Via Natural or Artificial Opening Endoscopic (ICD-10-PCS; CPT 43235; principal; 2022-11-13 11:40)
DX: K29.70 Gastritis, unspecified, without bleeding (principal); K44.9 Diaphragmatic hernia without obstruction or gangrene; K21.00 Gastro-esophageal reflux disease with esophagitis, without bleeding; Z80.0 Family history of malignant neoplasm of digestive organs
CPT/HCPCS: 43239; 88305; 88313; 88342; J7120; J2405

== ENCOUNTER → 2022-11-25 | Outpatient (CLI) | payer OTHER, SELFPAY ==
[2019-10-14 13:50] VITALS: BMI 36.2
[2022-11-25 16:49] LABS: Anion Gap 10 (5-15); BUN 15 mg/dL (7-18); BUN/Creat Ratio 15.6 RATIO (10-20); Calcium,Total 9.5 mg/dL (8.5-10.1); Chloride 105 mmol/L (98-107); Creatinine, Serum 0.96 mg/dL (0.55-1.02); EST Glomerular Filtration Rate 61 mL/min (>60); Est Glom Filt Rate - Afr Amer 74 mL/min (>60); Glucose 91 mg/dL (74-106); Potassium 3.6 mmol/L (3.5-5.1); Sodium Level 139 mmol/L (136-145); Thyroid Stim Hormone (TSH) 0.96 uIU/mL (0.358-3.74)
[2022-11-25 16:54] LABS: Vitamin D,25 Hydroxy 46.5 ng/mL
== END | disposition home or self-care (01) ==
LOC: BIMLAB 14:55
PROVIDERS: PCP Internal Medicine; Referring Provider Internal Medicine; Visit Provider Internal Medicine
DX: K21.9 Gastro-esophageal reflux disease without esophagitis (principal); N18.30 Chronic kidney disease, stage 3 unspecified; E03.9 Hypothyroidism, unspecified; M81.0 Age-related osteoporosis without current pathological fracture
CPT/HCPCS: 36415; 80048; 82306; 84443

== ENCOUNTER → 2023-06-13 | Outpatient (CLI) | payer OTHER, SELFPAY ==
[2019-10-14 13:50] VITALS: BMI 36.2
== END | disposition home or self-care (01) ==
LOC: LABSPEC 11:10
PROVIDERS: PCP Internal Medicine; Referring Provider Internal Medicine; Visit Provider Internal Medicine
DX: R09.81 Nasal congestion (principal)
CPT/HCPCS: 87635

== ENCOUNTER → 2023-08-01 | Outpatient (CLI) | payer OTHER, SELFPAY ==
[2019-10-14 13:50] VITALS: BMI 36.2
[2023-08-01 13:34] LABS: ALB/GLOB Ratio 1.1 RATIO (0.9-2.4); AST(SGOT) 23 U/L (15-37); Alanine Aminotransfer ALT/SGPT 42 U/L (13-56); Albumin, Serum 3.7 g/dL (3.2-5.0); Alkaline Phosphatase 65 U/L (45-117); Anion Gap 7 (5-15); BUN 16 mg/dL (7-18); BUN/Creat Ratio 18.6 RATIO (10-20); Calcium,Total 9.2 mg/dL (8.5-10.1); Chloride 106 mmol/L (98-107); Cholesterol 175 mg/dL (200); Creatinine, Serum 0.86 mg/dL (0.55-1.02); EST Glomerular Filtration Rate 69 mL/min (>60); Est Glom Filt Rate - Afr Amer 84 mL/min (>60); Globulin 3.3 g/dL (2.2-4.2); Glucose 97 mg/dL (74-106); High Density Lipoprotein 71 mg/dL; Potassium 4.4 mmol/L (3.5-5.1); Sodium Level 139 mmol/L (136-145); Triglycerides 165 mg/dL; Very Low Density Lipoprotein 33 mg/dL (5-40)
== END | disposition home or self-care (01) ==
LOC: BIMLAB 11:36
PROVIDERS: PCP Internal Medicine; Referring Provider Internal Medicine; Visit Provider Internal Medicine
DX: E03.9 Hypothyroidism, unspecified (principal); E78.5 Hyperlipidemia, unspecified
CPT/HCPCS: 36415; 80053; 80061; 84443

== ENCOUNTER → 2023-09-17 | Outpatient (CLI) | payer OTHER, SELFPAY ==
[2019-10-14 13:50] VITALS: BMI 36.2
--- NOTE | 2023-09-17 10:58 | BI_ITS ---
MAMMOGRAPHY - BILATERAL SCREENING REASON FOR EXAM: Female, 73 years old. Routine annual screening examination. PERTINENT HISTORY: Personal history of breast cancer. Prior right lumpectomy with radiation treatment. Grandmother with breast cancer. Prior right stereotactic breast biopsy. TECHNIQUE: Digital bilateral breast karen (3D mammographic acquisition) in the CC and MLO projections. 2-D mediolateral oblique (MLO) and craniocaudad (CC) views of both breasts were obtained. CAD: Full Field Digital Mammography with Computer Added Detection was performed. COMPARISON: Comparison is made with prior study of September 16, 2022 and June 10, 2022. FINDINGS: Breast Composition: The breasts are heterogeneously dense, which may obscure small masses. There are no dominant masses or suspicious calcifications. The patient is status post lumpectomy in the axillary region of the right breast with resultant postoperative scarring. There has been no change. No other significant abnormalities are identified. There has been no significant change since the prior study. BI/SCRN MAMM (CAD)W/KAREN BILAT IMPRESSION: Stable bilateral screening mammogram. Yearly follow-up mammogram recommended. (A) ASSESSMENT CATEGORY: BIRADS Category 2: Benign. A letter regarding these results will be sent to the patient by the facility within 30 days. Approximately 10% of breast cancers are not detected by mammography. A normal mammogram should not delay biopsy of a clinically suspicious abnormality. [id number] Electronically Signed: Stoney Castañeda MD at 12:17 EST ,
== END | disposition home or self-care (01) ==
LOC: OPBI 10:58
PROVIDERS: PCP Internal Medicine; Referring Provider Internal Medicine Medical Oncology; Visit Provider Internal Medicine Medical Oncology
DX: Z12.31 Encounter for screening mammogram for malignant neoplasm of breast (principal); Z85.3 Personal history of malignant neoplasm of breast; Z80.3 Family history of malignant neoplasm of breast
CPT/HCPCS: 77063; 77067

== ENCOUNTER → 2024-04-21 | Outpatient (CLI) | payer OTHER, SELFPAY ==
[2019-10-14 13:50] VITALS: BMI 36.2
[2024-04-21 15:15] LABS: Absolute Lymphocyte Count 1.98 X10^3/uL (0.83-4.51); Absolute Neutrophil Count 2.6 X10^3/uL (2.0-7.7); Basophil# 0.06 X10^3/uL; Basophil% 1.1 % (0-1); Eosinophil# 0.06 X10^3/uL; Eosinophils% 1.1 % (0-5); Hematocrit 42.2 % (37-47); Hemoglobin 13.5 g/dL (12.0-15.0); Lymphocyte # 1.98 X10^3/ul (0.83-4.51); Lymphocyte % 37.7 % (19-41); Mean Corpuscular Hgb 30.1 pg (27.0-32.0); Mean Platelet Vol. 9.6 fl (6.2-12.0); Monocyte% 9.5 % (0-10); NRBC Flagged by Analyzer 0 % (0-5); Neutrophil # 2.63 X10^3/uL (2.7-7.7); Neutrophil % 50.2 % (47-70); Platelet Count 328 K/mm3 (150-450); RBC Distribution Width CV 12.8 % (11.6-14.6); RBC Distribution Width SD 43.9 fl (35.1-43.9); Red Blood Count 4.49 M/mm3 (4.2-5.4); White Blood Count 5.3 K/mm3 (4.4-11.0)
[2024-04-21 15:39] LABS: ALB/GLOB Ratio 1.2 RATIO (0.9-2.4); AST(SGOT) 33 U/L (15-37); Alanine Aminotransfer ALT/SGPT 49 U/L (13-56); Albumin, Serum 3.9 g/dL (3.2-5.0); Alkaline Phosphatase 53 U/L (45-117); Anion Gap 7 (5-15); BUN 11 mg/dL (7-18); BUN/Creat Ratio 10.7 RATIO (10-20); Calcium,Total 9.5 mg/dL (8.5-10.1); Chloride 106 mmol/L (98-107); Cholesterol 170 mg/dL (200); Creatinine, Serum 1.03 mg/dL (0.55-1.02); EST Glomerular Filtration Rate 56 mL/min (>60); Est Glom Filt Rate - Afr Amer 68 mL/min (>60); Globulin 3.2 g/dL (2.2-4.2); Glucose 94 mg/dL (74-106); High Density Lipoprotein 79 mg/dL; Potassium 4.3 mmol/L (3.5-5.1); Protein, Total 7.1 g/dL (6.4-8.2); Sodium Level 138 mmol/L (136-145); Thyroid Stim Hormone (TSH) 1.07 uIU/mL (0.358-3.74); Triglycerides 93 mg/dL; Very Low Density Lipoprotein 19 mg/dL (5-40)
[2024-04-21 15:40] LABS: Vitamin D,25 Hydroxy 38.2 ng/mL
== END | disposition home or self-care (01) ==
LOC: BIMLAB 11:59
PROVIDERS: PCP Internal Medicine; Referring Provider Internal Medicine; Visit Provider Internal Medicine
DX: E03.9 Hypothyroidism, unspecified (principal); M81.0 Age-related osteoporosis without current pathological fracture
CPT/HCPCS: 36415; 80053; 80061; 82306; 84443; 85025

== ENCOUNTER → 2024-07-05 | Outpatient (CLI) | payer OTHER, SELFPAY ==
[2019-10-14 13:50] VITALS: BMI 36.2
--- NOTE | 2024-07-05 15:07 | CT_ITS ---
STUDY: CT BRAIN WITHOUT CONTRAST REASON FOR EXAM: Female, 73 years old. Headache RADIATION DOSAGE (If Supplied By Facility): CTDIvol = ( 47.06 ) mGy, DLP = ( 872.68 ) mGycm TECHNIQUE: Transaxial CT imaging of the brain was performed without administration of intravenous contrast material. Individualized dose optimization techniques were used for this CT. COMPARISON: No relevant priors. FINDINGS: Normal soft tissue structures. Normal calvarium. Calcific plaquing of the cavernous carotids. Normal size ventricles and extra-axial spaces for the patient''s age. Mild periventricular white matter ischemic changes. Normal basal ganglia and thalami. Normal brainstem. Normal cerebellum. There is no intracranial hemorrhage. There are no findings of an acute ischemic infarction. There is asymmetric enlargement of the right jugular bulb with dehiscence of the cortical margin of uncertain significance. Possibility of glomus jugulare not excluded. Enhanced CT or MRI recommended for further evaluation Normal visualized paranasal sinuses. CT/Brain/Head without Contrast IMPRESSION: Mild periventricular white matter ischemic change. No evidence for obstructive hydrocephalus or acute bleed.. 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 Enhanced CT or MRI would be helpful for more definitive evaluation Electronically Signed: Luciano Correia MD at 16:22 EDT ,
== END | disposition home or self-care (01) ==
LOC: CT 14:54
PROVIDERS: PCP Internal Medicine; Referring Provider Internal Medicine; Visit Provider Internal Medicine
DX: G43.909 Migraine, unspecified, not intractable, without status migrainosus (principal); R42 Dizziness and giddiness
CPT/HCPCS: 70450

== ENCOUNTER → 2024-08-18 | Outpatient (CLI) | payer OTHER, SELFPAY ==
[2019-10-14 13:50] VITALS: BMI 36.2
--- NOTE | 2024-08-18 15:27 | MRI_ITS ---
EXAM: MR HEAD WITHOUT AND WITH INTRAVENOUS CONTRAST CLINICAL INDICATION: Abnormal Brain CT TECHNIQUE: Multiplanar and multisequence MR images of the brain were obtained without and with intravenous contrast. CONTRAST: IV 11cc Clariscan COMPARISON: CT brain 07/05/2024 FINDINGS: BRAIN AND EXTRA-AXIAL SPACES: Small focus of increased T2 signal intensity within the frontal white matter noted bilaterally likely related to gliosis. 12 mm contrast-enhancing extra-axial mass noted anteriorly along the periventricular suggestive of meningioma. No mass effect. No associated vasogenic edema the adjacent brain. No restricted diffusion to suggest acute ischemia. No hemorrhage or mass effect. Ventricles are normal. Posterior fossa is normal. Basilar cisterns are patent. SELLA: Normal. Normal sella turcica, pituitary gland, infundibular stalk, optic chiasm and hypothalamus. AUDITORY SYSTEM: Normal. The internal auditory canals are patent. BONES/JOINTS: Intact calvarium. SINUSES: Unremarkable as visualized. Clear. MASTOID AIR CELLS: Clear. ORBITS: Unremarkable as visualized. Both globes, extraocular muscles, optic nerves and retrobulbar fat appear unremarkable. VASCULATURE: Unremarkable as visualized. Normal flow voids in the major intracranial circulation. MRI/Brain W/WO Contrast IMPRESSION: 1. No acute intracranial abnormality. 2. 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 Electronically Signed: Duran Rodriguez MD at 14:37 EST ,
[2024-08-18 16:01] LABS: CREATININE FINGERSTICK < 1.0 mg/dL (0.55-1.02); EGFR FINGERSTICK > 60.0000 mL/min (>60)
== END | disposition home or self-care (01) ==
LOC: MRI 15:21
PROVIDERS: PCP Internal Medicine; Referring Provider Internal Medicine; Visit Provider Internal Medicine
DX: R42 Dizziness and giddiness (principal); G43.909 Migraine, unspecified, not intractable, without status migrainosus; R90.89 Other abnormal findings on diagnostic imaging of central nervous system
CPT/HCPCS: 70553; A9579

== ENCOUNTER → 2024-09-20 | Outpatient (CLI) | payer OTHER, SELFPAY ==
[2019-10-14 13:50] VITALS: BMI 36.2
--- NOTE | 2024-09-20 14:55 | BI_ITS ---
MAMMOGRAPHY - BILATERAL SCREENING REASON FOR EXAM: Female, 74 years old. Routine annual screening examination. PERTINENT HISTORY: Personal history of breast cancer. History of right lumpectomy. History of bilateral breast aspirations. Grandmother with breast cancer. TECHNIQUE: Digital bilateral breast karen (3D mammographic acquisition) in the CC and MLO projections. 2-D mediolateral oblique (MLO) and craniocaudad (CC) views of both breasts were obtained. CAD: Full Field Digital Mammography with Computer Added Detection was performed. COMPARISON: Comparison is made with prior study dated September 17, 2023 and September 16, 2022. FINDINGS: Breast Composition: The breasts are heterogeneously dense, which may obscure small masses. There are no dominant masses or suspicious calcifications. The patient is status post lumpectomy in the upper lateral aspect of the right breast with postoperative scarring. Surgical clips are also seen in the right axillary region. No other significant abnormalities are identified. There has been no significant change since the prior study. BI/SCRN MAMM (CAD)W/KAREN BILAT IMPRESSION: Stable bilateral screening mammogram. Yearly follow-up mammogram recommended. (A) ASSESSMENT CATEGORY: BIRADS Category 2: Benign. A letter regarding these results will be sent to the patient by the facility within 30 days. Approximately 10% of breast cancers are not detected by mammography. A normal mammogram should not delay biopsy of a clinically suspicious abnormality. [id number] Electronically Signed: Stoney Castañeda MD at 8:37 EST ,
== END | disposition home or self-care (01) ==
PROVIDERS: PCP Internal Medicine; Referring Provider Nurse Practitioner Family; Visit Provider Nurse Practitioner Family
DX: Z12.31 Encounter for screening mammogram for malignant neoplasm of breast (principal); Z85.3 Personal history of malignant neoplasm of breast
CPT/HCPCS: 77063; 77067

== ENCOUNTER → 2024-10-18 | Outpatient (CLI) | payer OTHER, SELFPAY ==
[2019-10-14 13:50] VITALS: BMI 36.2
--- NOTE | 2024-10-18 15:37 | RAD_ITS ---
INDICATION: Cervical radiculopathy EXAMINATION/TECHNIQUE: X-RAY - XR Spine Cervical 2 or 3 Views COMPARISON: None. FINDINGS: VERTEBRAE: Preserved vertebral body height. No acute fracture. 2 mm anterolisthesis C4 on C5. 2 mm anterolisthesis C7 on T1. Preservation of the normal cervical lordosis. DISCS: Loss of disc height C5-6 and C6-7 with small spondylitic osteophytes. NECK SOFT TISSUES: No prevertebral soft tissue widening. LUNG APICES: Clear. RAD/Cerv Spine 2 or 3 Views IMPRESSION: Degenerative disc disease as above.. Electronically Signed: Alejandro Singh MD at 16:51 EST ,
--- NOTE | 2024-10-18 15:40 | RAD_ITS ---
ACR Level 3 findings have been noted. An addendum which confirms receipt of the report will follow. INDICATION: Left Radiculopathy EXAMINATION/TECHNIQUE: X-RAY - XR Spine Lumbar Min 4 Views COMPARISON: 06/08/2021 FINDINGS: VERTEBRAE: Preserved vertebral body height. No fracture. Stable 7 mm retrolisthesis L1 on L2. Preservation of the normal lumbar lordosis. L1 pedicles poorly seen on the frontal view. DISCS: Stable severe loss of disc height at L1-2. INCLUDED ABDOMEN: Included bowel gas pattern is non-obstructive. RAD/L/S Spine Min 4 Views IMPRESSION: Stable severe degenerative disc disease at L1-2. Poor demonstration of the L1 pedicles on the frontal view. Recommend CT lumbar spine follow-up to exclude lytic process at this level. Electronically Signed: Alejandro Singh MD at 16:46 EST ,
[2024-10-18 16:39] LABS: Absolute Lymphocyte Count 2.56 X10^3/uL (0.83-4.51); Absolute Neutrophil Count 3.9 X10^3/uL (2.0-7.7); Basophil# 0.05 X10^3/uL; Basophil% 0.7 % (0-1); Eosinophil# 0.11 X10^3/uL; Eosinophils% 1.5 % (0-5); Hematocrit 41.2 % (37-47); Hemoglobin 13.2 g/dL (12.0-15.0); Lymphocyte # 2.56 X10^3/ul (0.83-4.51); Lymphocyte % 35.4 % (19-41); Mean Corpuscular Hgb 30.4 pg (27.0-32.0); Mean Corpuscular Volume 94.9 fL (81-99); Monocyte# 0.64 X10^3/uL; Monocyte% 8.8 % (0-10); NRBC Flagged by Analyzer 0 % (0-5); Neutrophil # 3.86 X10^3/uL (2.7-7.7); Neutrophil % 53.3 % (47-70); Platelet Count 364 K/mm3 (150-450); RBC Distribution Width CV 12.4 % (11.6-14.6); RBC Distribution Width SD 43.5 fl (35.1-43.9); Red Blood Count 4.34 M/mm3 (4.2-5.4); White Blood Count 7.2 K/mm3 (4.4-11.0)
[2024-10-18 17:05] LABS: Vitamin B12 545 pg/mL (211-911)
[2024-10-18 17:06] LABS: ALB/GLOB Ratio 1.1 RATIO (0.9-2.4); AST(SGOT) 21 U/L (15-37); Alanine Aminotransfer ALT/SGPT 30 U/L (13-56); Albumin, Serum 3.9 g/dL (3.2-5.0); Alkaline Phosphatase 63 U/L (45-117); Anion Gap 7 (5-15); BUN 15 mg/dL (7-18); Calcium,Total 9.3 mg/dL (8.5-10.1); Chloride 106 mmol/L (98-107); Creatinine, Serum 0.88 mg/dL (0.55-1.02); EST Glomerular Filtration Rate 67 mL/min (>60); Est Glom Filt Rate - Afr Amer 81 mL/min (>60); Globulin 3.6 g/dL (2.2-4.2); Glucose 93 mg/dL (74-106); Potassium 3.8 mmol/L (3.5-5.1); Protein, Total 7.5 g/dL (6.4-8.2); Sodium Level 138 mmol/L (136-145)
== END | disposition home or self-care (01) ==
PROVIDERS: PCP Internal Medicine; Referring Provider Internal Medicine; Visit Provider Internal Medicine
DX: G62.9 Polyneuropathy, unspecified (principal); E78.5 Hyperlipidemia, unspecified; E03.9 Hypothyroidism, unspecified; M54.16 Radiculopathy, lumbar region
CPT/HCPCS: 36415; 72040; 72110; 80053; 82607; 84443; 85025

== ENCOUNTER → 2024-11-12 | Outpatient (CLI) | payer OTHER, SELFPAY ==
[2019-10-14 13:50] VITALS: BMI 36.2
--- NOTE | 2024-11-12 16:08 | MRI_ITS ---
PROCEDURE: SPINE LUMBAR (ROUTINE) REASON FOR EXAM: Low back pain with radiculopathy into the bilateral lower extremities. TECHNIQUE: Multiplanar multisequence imaging of the lumbar spine performed without IV contrast enhancement, utilizing a standard protocol. COMPARISON: None. FINDINGS: Curvature is within normal limits. Mild retrolisthesis of L1 on L2 measuring 4 mm. Moderate degenerative disc and endplate changes seen at the L1-2 level. No acute lumbar spine fractures or dislocations are identified. Remaining intervertebral disc spaces of the lumbar spine appear well hydrated. Conus medullaris terminates posterior to the L1 level. Distal cord and cauda equina appear intact. 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 Paraspinal soft tissues appear intact. Partially imaged suspected uterine fibroid. Disc levels as follows: T12-L1: Evaluated on sagittal imaging only. No significant disc herniation, central spinal or neural foraminal stenosis bilaterally L1-2: Mild retrolisthesis. Central right disc bulge. Mild facet arthrosis. No significant central spinal or neural foraminal stenosis, bilaterally. L2-3: Mild facet arthrosis bilaterally. No disc herniation, central spinal or neural foraminal stenosis bilaterally. L3-4: Mild facet arthrosis bilaterally. No disc herniation, central spinal or neural foraminal stenosis bilaterally. L4-5: Minimal broad-based disc bulge. Mild facet arthrosis and ligamentum flavum thickening. No central spinal or neural foraminal stenosis bilaterally L5-S1: Minimal broad-based disc bulge. Mild facet arthrosis and mild ligamentum flavum thickening. No central spinal or neural foraminal stenosis bilaterally. Sacrum: Visualized upper sacrum and SI joints are unremarkable. MRI/Spine Lumbar (Routine) IMPRESSION: 1. At the L1-2 level, mild retrolisthesis, with moderate degenerative disc and endplate changes. Central right disc bulge without significant central spinal or neural foraminal stenosis bilaterally. 2. Additional minimal disc bulges seen at the L4-5 and L5-S1 levels, without si gnificant central spinal or neural foraminal stenosis bilaterally. 3. Suspect partially imaged uterine fibroid. [facility]
== END | disposition home or self-care (01) ==
LOC: MRI 15:54
PROVIDERS: PCP Internal Medicine; Referring Provider Internal Medicine; Visit Provider Internal Medicine
DX: R93.7 Abnormal findings on diagnostic imaging of other parts of musculoskeletal system (principal); M54.16 Radiculopathy, lumbar region; G62.9 Polyneuropathy, unspecified
CPT/HCPCS: 72148

== ENCOUNTER → 2025-08-03 | Outpatient (CLI) | payer OTHER, SELFPAY ==
[2019-10-14 13:50] VITALS: BMI 36.2
[2025-08-03 13:12] LABS: AST(SGOT) 30 U/L (<=31); Alanine Aminotransfer ALT/SGPT 28 U/L (<=34); Albumin, Serum 4.4 g/dL (3.4-4.8); Alkaline Phosphatase 92 U/L (35-104); Anion Gap 11 (5-15); BUN 13 mg/dL (4-19); BUN/Creat Ratio 14.9 RATIO (10-20); Calcium,Total 9.9 mg/dL (7.6-11.0); Carbon Dioxide 24.6 mmol/L (21.0-32.0); Chloride 103 mmol/L (98-108); Cholesterol 198 mg/dL (<=200); Globulin 3.0 g/dL (2.2-4.2); Glucose 108 mg/dL (70-99); Low Density Lipoprotein Calc. 91 mg/dL; Potassium 3.8 mmol/L (3.3-5.1); Triglycerides 125 mg/dL; Very Low Density Lipoprotein 25 mg/dL (5-40); Vitamin D,25 Hydroxy 42.6 ng/mL (30-100); cholesterol:hdl ratio screen 2.32
== END | disposition home or self-care (01) ==
LOC: MTLAB 10:38
PROVIDERS: PCP Internal Medicine; Referring Provider Internal Medicine; Visit Provider Internal Medicine
DX: E03.9 Hypothyroidism, unspecified (principal); M81.0 Age-related osteoporosis without current pathological fracture
CPT/HCPCS: 36415; 80053; 80061; 82306; 84443

== ENCOUNTER → 2025-09-21 | Outpatient (CLI) | payer MEDICARE, SELFPAY ==
[2019-10-14 13:50] VITALS: BMI 36.2
--- NOTE | 2025-09-21 10:45 | BI_ITS ---
EXAM: SCRN MAMM (CAD)W/KAREN BILAT DATE: 09/21/2025 CLINICAL HISTORY: F, Age 75 y/o , SCREENING Personal history of breast cancer. Grandmother with breast cancer. Prior right lumpectomy. History of bilateral breast aspirations. TECHNIQUE: Procedure Code: [id number] Modality: MG Procedure: SCRN MAMM (CAD)W/KAREN BILAT COMPARISON: Prior exam(s) dated September 20, 2024.. FINDINGS: TISSUE DENSITY: The breasts are heterogeneously dense, which may obscure small masses. Bilateral Breast Mammographic Findings: No significant masses, calcifications or other abnormalities are identified. The patient is status post lumpectomy in the deep upper lateral aspect of the right breast. Surgical clips are seen in the right axilla. No suspicious masses, areas of developing architectural distortion, or suspicious calcifications. There has been no significant interval change. BI/SCRN MAMM (CAD)W/KAREN BILAT IMPRESSION: Stable bilateral screening mammogram. OVERALL FINAL ASSESSMENT BI-RADS 2: BENIGN RECOMMENDATION: Routine annual follow-up in 1 Year Additional Recommendation none A letter with findings and recommendations will be mailed to the patient. Reading Location: [place] [address]
== END | disposition home or self-care (01) ==
LOC: OPBI 10:37
PROVIDERS: PCP Internal Medicine; Referring Provider Internal Medicine Medical Oncology; Visit Provider Internal Medicine Medical Oncology
DX: Z12.31 Encounter for screening mammogram for malignant neoplasm of breast (principal)
CPT/HCPCS: 77063; 77067